=== PATIENT | female | born 1940 | race Caucasian/White ===

== ENCOUNTER 2016-09-30 21:54 | Observation (INO) | payer MEDICARE, BC ==
[2016-09-30] MEDS ORDERED: SODIUM CHLORIDE 0.9% 1,000 ML IV STA (22:10)
--- NOTE | 2016-09-30 22:15 | ED ---
General Adult HPI - General Chief complaint: Chest Pain Stated complaint: Chest Pain Time Seen by Provider: 09/30/16 22:08 Source: patient, EMS, RN notes reviewed, old records reviewed Mode of arrival: EMS Limitations: no limitations - History of Present Illness Initial comments: This is a 68-year-old female to the ER for evaluation of chest pain. Patient has history of heart disease history of chest pain pacemaker placed. Patient does have history of chest pain and angina takes nitro, patient remains the chest at this time although mildly improved with nitro. The symptoms occurred after dinner. Mild shortness of breath or chronic as she had also has asthma. No fevers no cough no congestion. Radiate. - Related Data Home Medications Medication Instructions Recorded Confirmed Metoprolol Tartrate [Lopressor] 50 mg PO BID 09/30/16 09/30/16 Sertraline HCl [Zoloft] 50 mg PO DAILY 09/30/16 09/30/16 Allergies Allergy/AdvReac Type Severity Reaction Status Date / Time Sulfa (Sulfonamide Allergy Unknown Unknown Verified 09/30/16 23:04 Antibiotics) Review of Systems ROS Statement: Those systems with pertinent positive or pertinent negative responses have been documented in the HPI. ROS Other: All systems not noted in ROS Statement are negative. Past Medical History Past Medical History: Asthma, Chest Pain / Angina, COPD, Hypertension History of Any Multi-Drug Resistant Organisms: C-DIFF Date of last positivie culture/infection: per pt severl [facility] ago [facility] Past Surgical History: Joint Replacement Additional Past Surgical History / Comment(s): pacemaker placement 2013, oophrectomy, Past Psychological History: No Psychological Hx Reported Smoking Status: Never smoker Past Alcohol Use History: Rare Past Drug Use History: None Reported General Exam Limitations: no limitations General appearance: alert, in no apparent distress Head exam: Present: atraumatic, normocephalic, normal inspection Eye exam: Present: normal appearance, PERRL, EOMI. Absent: scleral icterus, conjunctival injection, periorbital swelling ENT exam: Present: normal exam, mucous membranes moist Neck exam: Present: normal inspection. Absent: tenderness, meningismus, lymphadenopathy Respiratory exam: Present: normal lung sounds bilaterally. Absent: respiratory distress, wheezes, rales, rhonchi, stridor Cardiovascular Exam: Present: regular rate, normal rhythm, normal heart sounds. Absent: systolic murmur, diastolic murmur, rubs, gallop, clicks GI/Abdominal exam: Present: soft, normal bowel sounds. Absent: distended, tenderness, guarding, rebound, rigid Extremities exam: Present: normal inspection, full ROM, normal capillary refill. Absent: tenderness, pedal edema, joint swelling, calf tenderness Back exam: Present: normal inspection Neurological exam: Present: alert, oriented X3, CN II-XII intact Psychiatric exam: Present: normal affect, normal mood Skin exam: Present: warm, dry, intact, normal color. Absent: rash Course Vital Signs 09/30/16 09/30/16 09/30/16 22:01 22:03 22:29 Temperature 99.2 F 99.2 F Pulse Rate 70 72 86 Respiratory 16 16 16 Rate Blood Pressure 225/117 225/117 191/95 O2 Sat by Pulse 97 97 98 Oximetry 09/30/16 09/30/16 09/30/16 23:01 23:25 23:35 Temperature 97.5 F L Pulse Rate 80 84 84 Respiratory 16 16 Rate Blood Pressure 188/86 197/99 184/90 O2 Sat by Pulse 97 97 Oximetry - Reevaluation(s) Reevaluation #1: 10/01/16 00:16 Patient survey with chest pain, blood pressure much improved Medical Decision Making - Medical Decision Making 76 female here for evaluation of chest pain, continued chest pain, patient to be admitted for cardiac observation, serial troponins - Lab Data Result diagrams: 09/30/16 22:10 09/30/16 22:10 Lab Results 09/30/16 09/30/16 09/30/16 Range/Units 22:10 22:10 22:10 WBC 11.5 H (3.8-10.6) k/uL RBC 4.99 (3.80-5.40) m/uL Hgb 15.2 (11.4-16.0) gm/dL Hct 45.9 (34.0-46.0) % MCV 92.1 (80.0-100.0) fL MCH 30.5 (25.0-35.0) pg MCHC 33.1 (31.0-37.0) g/dL RDW 14.1 (11.5-15.5) % Plt Count 146 L (150-450) k/uL Neutrophils % 78 % Lymphocytes % 11 % Monocytes % 7 % Eosinophils % 3 % Basophils % 1 % Neutrophils # 8.9 H (1.3-7.7) k/uL Lymphocytes # 1.3 (1.0-4.8) k/uL Monocytes # 0.8 (0-1.0) k/uL Eosinophils # 0.3 (0-0.7) k/uL Basophils # 0.1 (0-0.2) k/uL PT (9.0-12.0) sec INR (<1.1) APTT (22.0-30.0) sec Sodium 143 (137-145) mmol/L Potassium 4.1 (3.5-5.1) mmol/L Chloride 107 (98-107) mmol/L Carbon Dioxide 26 (22-30) mmol/L Anion Gap 10 mmol/L BUN 22 H (7-17) mg/dL Creatinine 0.80 (0.52-1.04) mg/dL Est GFR (MDRD) Af Amer >60 (>60 ml/min/1.73 sqM) Est GFR (MDRD) Non-Af >60 (>60 ml/min/1.73 sqM) Glucose 107 H (74-99) mg/dL Calcium 9.6 (8.4-10.2) mg/dL Magnesium 1.9 (1.6-2.3) mg/dL Total Bilirubin 0.8 (0.2-1.3) mg/dL AST 27 (14-36) U/L ALT 29 (9-52) U/L Alkaline Phosphatase 100 (38-126) U/L Total Creatine Kinase 62 (30-135) U/L CK-MB (CK-2) 2.2 (0.0-2.4) ng/mL CK-MB (CK-2) Rel Index 3.5 Troponin I 0.020 (0.000-0.034) ng/mL NT-Pro-B Natriuret Pep pg/mL Total Protein 6.9 (6.3-8.2) g/dL Albumin 4.2 (3.5-5.0) g/dL Lipase 143 (23-300) U/L 09/30/16 09/30/16 Range/Units 22:10 22:10 WBC (3.8-10.6) k/uL RBC (3.80-5.40) m/uL Hgb (11.4-16.0) gm/dL Hct (34.0-46.0) % MCV (80.0-100.0) fL MCH (25.0-35.0) pg MCHC (31.0-37.0) g/dL RDW (11.5-15.5) % Plt Count (150-450) k/uL Neutrophils % % Lymphocytes % % Monocytes % % Eosinophils % % Basophils % % Neutrophils # (1.3-7.7) k/uL Lymphocytes # (1.0-4.8) k/uL Monocytes # (0-1.0) k/uL Eosinophils # (0-0.7) k/uL Basophils # (0-0.2) k/uL PT 10.6 (9.0-12.0) sec INR 1.0 (<1.1) APTT 22.4 (22.0-30.0) sec Sodium (137-145) mmol/L Potassium (3.5-5.1) mmol/L Chloride (98-107) mmol/L Carbon Dioxide (22-30) mmol/L Anion Gap mmol/L BUN (7-17) mg/dL Creatinine (0.52-1.04) mg/dL Est GFR (MDRD) Af Amer (>60 ml/min/1.73 sqM) Est GFR (MDRD) Non-Af (>60 ml/min/1.73 sqM) Glucose (74-99) mg/dL Calcium (8.4-10.2) mg/dL Magnesium (1.6-2.3) mg/dL Total Bilirubin (0.2-1.3) mg/dL AST (14-36) U/L ALT (9-52) U/L Alkaline Phosphatase (38-126) U/L Total Creatine Kinase (30-135) U/L CK-MB (CK-2) (0.0-2.4) ng/mL CK-MB (CK-2) Rel Index Troponin I (0.000-0.034) ng/mL NT-Pro-B Natriuret Pep 3250 pg/mL Total Protein (6.3-8.2) g/dL Albumin (3.5-5.0) g/dL Lipase (23-300) U/L - Radiology Data Radiology results: report reviewed (Chest x-ray negative for acute disease), image reviewed Critical Care Time Critical Care Time: Yes Total Critical Care Time: 31 Disposition Clinical Impression: Chest pain Disposition: ADMITTED IP TO THIS HOSP Condition: Good Instructions: Chest Pain (ED) Referrals: Yanick Oconnell MD [Primary Care Provider] - 1-2 days
[2016-09-30] MEDS ORDERED: LABETALOL 5 MG/ML VIAL MDV IVP STA (22:23)
[2016-09-30 22:24] LABS: Basophils # (A) 0.1 k/uL (0-0.2); Basophils % (A) 1 %; CH 30.1; CHCM 32.8; Eosinophils # (A) 0.3 k/uL (0-0.7); Eosinophils % (A) 3 %; HCT 45.9 % (34.0-46.0); HGB 15.2 gm/dL (11.4-16.0); Luc # (Auto) 0.13; Luc % (Auto) 1; Lymphocytes # (A) 1.3 k/uL (1.0-4.8); Lymphocytes % (A) 11 %; MCH 30.5 pg (25.0-35.0); MCHC 33.1 g/dL (31.0-37.0); MCV 92.1 fL (80.0-100.0); Mean Platelet Volume 7.6; Monocytes # (A) 0.8 k/uL (0-1.0); Monocytes % (A) 7 %; Neutrophils # (A) 8.9 k/uL (1.3-7.7); Neutrophils % (A) 78 %; RBC 4.99 m/uL (3.80-5.40); RDW 14.1 % (11.5-15.5); WBC 11.5 k/uL (3.8-10.6); WBC (Perox) 10.63
[2016-09-30 22:33] LABS: ALT 29 U/L (9-52); AST 27 U/L (14-36); Alkaline Phosphatase 100 U/L (38-126); Anion Gap 10 mmol/L; Blood Urea Nitrogen 22 mg/dL (7-17); Calcium 9.6 mg/dL (8.4-10.2); Carbon Dioxide 26 mmol/L (22-30); Chloride 107 mmol/L (98-107); Glucose 107 mg/dL (74-99); Magnesium 1.9 mg/dL (1.6-2.3); Non-African American GFR(MDRD) >60 (>60 ml/min/1.73 sqM); Potassium 4.1 mmol/L (3.5-5.1); Sodium 143 mmol/L (137-145); Total Bilirubin 0.8 mg/dL (0.2-1.3); Total Protein 6.9 g/dL (6.3-8.2)
[2016-09-30 22:34] LABS: Prothrombin Time 10.6 sec (9.0-12.0)
[2016-09-30 22:38] LABS: Partial Thromboplastin Time 22.4 sec (22.0-30.0)
--- NOTE | 2016-09-30 22:53 | XR ---
EXAM: XR Chest, 2 Views CLINICAL HISTORY: Reason: Chest Pain TECHNIQUE: Frontal and lateral views of the chest. COMPARISON: No relevant prior studies available. FINDINGS: Lungs: Thin linear atelectasis or scarring at the right base. Pleural space: Unremarkable. No pneumothorax. Heart: Heart size within normal limits with probable coronary artery calcification. Mediastinum: Mediastinal contours within normal limits with diffuse aortic calcification. Bones/joints: Mild dextroscoliosis and accentuated thoracic kyphosis. Tubes, lines and devices: 2-lead left-sided pacemaker. IMPRESSION: No acute intrathoracic abnormality is seen.
[2016-09-30 23:08] LABS: Creatine Kinase MB 2.2 ng/mL (0.0-2.4); Troponin I 0.02 ng/mL (0.000-0.034)
[2016-10-01] MEDS ORDERED: ASPIRIN 81 MG CHEW PO STA (00:13)
[2016-10-01] MEDS ORDERED: HEPARIN SODIUM,PORCINE 5,000 UNIT/ML 1 ML VIAL IV ONE (00:13)
[2016-10-01] MEDS ORDERED: HEPARIN SODIUM,PORCINE/D5W PMX 25,000 UNIT in DEXTROSE/WATER 1 500ML.BAG IV SCH (00:15)
[2016-10-01] MEDS ORDERED: ONDANSETRON 4 MG/2 ML VIAL IVP PRN (01:49)
[2016-10-01 01:55] VITALS: BMI 24.3
[2016-10-01] MEDS: NITROGLYCERIN SL TABS 0.4 MG TAB SUBLINGUAL PRN ×2 (01:55→01:58)
[2016-10-01] MEDS ORDERED: MORPHINE SULFATE 4 MG/ML SYRINGE ONE (01:56)
[2016-10-01] MEDS: MORPHINE SULFATE 4 MG/ML SYRINGE IVP PRN ×2 (03:29→06:34)
[2016-10-01] MEDS ORDERED: RX INFO: IV CONTRAST WAS GIVEN 1 EACH MISC MISCELLANE PRN (08:04)
--- NOTE | 2016-10-01 09:20 | CT ---
EXAMINATION TYPE: CT chest angio for PE DATE OF EXAM: 10/01/2016 COMPARISON: Radiograph 09/30/2016 HISTORY: 76-year-old female with chest pain TECHNIQUE: Contiguous axial scanning of the chest performed with IV Contrast, patient injected with 1 00 mL of Omnipaque 350. Coronal and sagittal MIP reconstructions performed. CT DLP: 370 mGycm Automated exposure control for dose reduction was used. FINDINGS: Left anterior chest wall pacemaker generator with right atrial and right ventricular leads. The heart is borderline enlarged with trace anterior pericardial thickening. Coronary vessel calcific ations are present and are remarkable for coronary artery disease. Ascending aorta is borderline aneurysmal at 4.0 cm. There is conventional arterial vessel branching a natomy with mild atherosclerotic calcifications throughout the arch and descending aorta. There is ec citlaly of the upper descending thoracic aorta at 3.1 cm and of the lower descending thoracic aorta at 2.8 cm. Some prominent but nonenlarged mediastinal lymph nodes measure up to 9 mm in the precarinal and right tracheobronchial angle region. Borderline enlarged caliber to the main right and left pulmonary arteries at 2.5 and 2.6 cm, respecti vely, may reflect underlying pulmonary arterial hypertension. There is satisfactory opacification wit hout evidence for pulmonary embolus. Mild diffuse bronchial wall thickening. There is some mosaic attenuation noted in the mid lungs and s ome patchy atelectasis and other opacity at the right base and inferior lingula. No pleural effusion. Visualized upper abdomen shows small dependent 6 mm gallstones within the gallbladder. Bones: S-shaped scoliosis and accentuated mid thoracic kyphosis. No osseous destructive process seen. IMPRESSION: 1. CORRELATE FOR POSSIBLE PULMONARY ARTERIAL HYPERTENSION. NO EVIDENCE FOR PULMONARY EMBOLUS. 2. MILD DIFFUSE BRONCHIAL WALL THICKENING AND SOME MOSAIC ATTENUATION SUGGESTING AIR TRAPPING. CORREL ATE FOR BRONCHITIS AND SMALL AIRWAYS DISEASE OR SOME COMPONENT OF UNDERLYING EMPHYSEMA. 3. SOME PATCHY ATELECTASIS OR INFILTRATE AT THE RIGHT BASE AND INFERIOR LINGULA. CORRELATE FOR ANY IN FECTIOUS SIGNS/SYMPTOMS. 4. BORDERLINE ANEURYSMAL THORACIC AORTA, CHOLELITHIASIS, AND S-SHAPED SCOLIOSIS.
--- NOTE | 2016-10-01 11:26 | ECHOF ---
Referral Reason: MEASUREMENTS -------- HEIGHT: 165.1 cm WEIGHT: 71.2 kg BP: 148/88 IVSd: 1.3 cm (0.6 - 1.1) LVIDd: 2.8 cm (3.9 - 5.3) LVPWd: 1.9 cm (0.6 - 1.1) IVSs: 1.7 cm LVIDs: 1.7 cm LVPWs: 2.1 cm Ao Diam: 3.7 cm (2.0 - 3.7) AV Cusp: 2.2 cm (1.5 - 2.6) LA Diam: 2.8 cm (2.7 - 3.8) MV EXCURSION: 10.759 mm (> 18.000) MV EF SLOPE: 87 mm/s (70 - 150) EPSS: 0.7 cm MV E Darren: 0.75 m/s MV DecT: 152 ms MV A Darren: 0.75 m/s MV E/A Ratio: 1.00 RAP: 5.00 mmHg RVSP: 30.83 mmHg FINDINGS -------- Paced rhythm. This was a technically good study. There is moderate concentric left ventricular hypertrophy. Overall left ventricular systolic function is low-normal with, an EF between 50 - 55 %. The right ventricle is normal in size and function. The left atrium is normal in size. The right atrium is normal in size. Aortic valve is trileaflet and is mildly thickened. The mitral valve leaflets are mildly thickened. Mild mitral annular calcification present. Mild mitral regurgitation is present. Mild tricuspid regurgitation present. The right ventricular systolic pressure, as measured by Doppler, is 30.83mmHg. Pulmonic valve appears structurally normal. The aortic root size is normal. The pericardium is normal. CONCLUSIONS -------- 1. Paced rhythm. 2. Mild mitral annular calcification present. 3. Mild mitral regurgitation is present. 4. Mild tricuspid regurgitation present. 5. The right ventricular systolic pressure, as measured by Doppler, is 30.83mmHg. 6. Pulmonic valve appears structurally normal. 7. The aortic root size is normal. 8. The pericardium is normal. 9. This was a technically good study. 10. There is moderate concentric left ventricular hypertrophy. 11. Overall left ventricular systolic function is low-normal with, an EF between 50 - 55 %. 12. The right ventricle is normal in size and function. 13. The left atrium is normal in size. 14. The right atrium is normal in size. 15. Aortic valve is trileaflet and is mildly thickened. 16. The mitral valve leaflets are mildly thickened. DEPUTY CLERK OF COURT: Abigail Kellogg RDCS
[2016-10-01] MEDS ORDERED: AMINOPHYLLINE 500 MG/20 ML VIAL IV PRN (11:36)
[2016-10-01] MEDS ORDERED: REGADENOSON 0.4 MG/5 ML SYRINGE IV ONE (11:36)
[2016-10-01] MEDS: SODIUM CHLORIDE 0.9% 1,000 ML IV SCH (13:25)
[2016-10-01] MEDS: METOPROLOL TARTRATE 50 MG TAB PO SCH ×2 (14:33→22:50)
[2016-10-01] MEDS: ATORVASTATIN 80 MG TAB PO SCH (14:34)
[2016-10-01] MEDS: LOSARTAN-HCTZ 50-12.5 MG 1 EACH TAB PO SCH (14:34)
[2016-10-01] MEDS: SERTRALINE 50 MG TAB PO SCH (14:34)
[2016-10-02 05:48] LABS: Mean Platelet Volume 7.8
[2016-10-02 06:03] LABS: Cholesterol 141 mg/dL (<200); HDL Cholesterol 66 mg/dL (40-60); Triglycerides 44 mg/dL (<150)
[2016-10-02] MEDS: SODIUM CHLORIDE 0.9% 1,000 ML IV SCH (08:15)
[2016-10-02] MEDS: SERTRALINE 50 MG TAB PO SCH (08:32)
[2016-10-02] MEDS: ATORVASTATIN 80 MG TAB PO SCH (08:32)
[2016-10-02] MEDS: METOPROLOL TARTRATE 50 MG TAB PO SCH (08:32)
[2016-10-02] MEDS: LOSARTAN-HCTZ 50-12.5 MG 1 EACH TAB PO SCH (08:33)
[2016-10-02] MEDS ORDERED: ASPIRIN 325 MG TAB PO SCH (09:00)
[2016-10-02 09:03] VITALS: BP 158/90; PULSE 53; RESP 16; TEMP 97.9
--- NOTE | 2016-10-02 09:49 | PN ---
CHIEF COMPLAINT: Chest pain. HISTORY OF PRESENT ILLNESS: This 76 year old presents to the hospital emergency room via EMS with complaints of chest pain. The patient says the pain had been present for about ten hours duration quite intense across the chest and precordial area. The patient's neighbor said she looked pale and thus decided to come to the emergency room. She denies having any other symptoms of nausea, vomiting, shortness of breath, any worse than usual. Denied any cough, congestion or any hemoptysis. The patient denied any palpitations. She does have a history of pacemaker for sick sinus syndrome. She has had no known history of coronary artery disease, previous echo ( ) back in 2014 by cardiology was negative. The patient was given nitroglycerine by the EMS as well as the emergency room without any significant change. The patient's EKG is not helpful because the patient is pacemaker rhythm and bundle branch block type pattern. She denies any symptoms worsening with sitting or laying down. the patient described the pain as crushing. Denied any abdominal pains. After evaluation in the emergency room with negative troponins, the patient was admitted for further evaluation due to pacemaker status. The patient required some morphine withheld. This morning she is denying any pain. PAST MEDICAL HISTORY: Significant for hypertension for over 17 years, history of sick sinus syndrome, with a previous pacemaker, history of COPD, history of rheumatoid arthritis for more than 40 years. She does have a history of pneumonia in the past. No history of any malignancy, liver disease, kidney disease, ulcers, TB, hepatitis, no history of any rheumatic fever, myocardial infarction or CVA. Did have an infected calcaneum and osteomyelitis, resolved with treatment. PAST SURGICAL HISTORY: Significant for tonsillectomy, bilateral total knee arthroplasty, right ovarian salpingo-oophorectomy, D&C, both ankle fusion, cataract surgery. Has had a previous breast biopsy. PERSONAL HISTORY: Nonsmoker, alcohol rare. VACCINATIONS: Pneumovax in 2004 and in 2013. ALLERGIES: SULFA, INDOCIN, GOLD. MEDICATIONS: 1. Zoloft 50 mg daily. 2. Metoprolol 50 mg b.i.d. 3. Used to be on ( ) which she has not been taking. 4. Methotrexate used to help. Because of the cost of medication, the patient stopped. SOCIAL HISTORY: , singled, retired. Diet regular. Exercise none. Fairly active. FAMILY MEDICAL HISTORY: Father age of 80 because of CA of the prostate. Mother age 97, history of macular degeneration and leukemia. One brother age 73 with history of coronary artery disease. Sister 67 and 69 in adequate health. The patient has two daughters. One daughter has had leg amputation for accidental injury. The other daughter is in good health. REVIEW OF SYSTEMS: NEURO: Denies any headaches, dizziness, no double vision or blurred vision. No symptoms of TIA, syncope or seizures. PSYCH: No anxiety or depression. CARDIAC: Denies chest pain, angina or palpitations at present. Did have chest pain at the time of admission. Denies shortness of breath. Does have some dyspnea on exertion. Mild chronic cough. No hemoptysis. GI: No nausea or vomiting, abdominal pain, heartburn, diarrhea, constipation, hematochezia, melena. : No symptoms of dysuria or hematuria. EXTREMITIES: Denies pain except for chronic arthritic pain. CONSTITUTIONAL: Had a low grade temperature of 99.2 in the emergency room, otherwise, no fever or chills. Weight is stable. SKIN: No rashes. PHYSICAL EXAMINATION: Pleasant female in no distress. VITAL SIGNS: This morning reveals temperature 97.5, pulse 77, respirations 18. Blood pressure 148/88. She did have a blood pressure of 225/117 at the time of ER evaluation. HEENT: Normocephalic. NECK: Decreased range of motion. No JVD. No carotid bruit. No thyromegaly. Oral cavity is dry. CHEST: Examination, mild generalized decreased air flow, normal percussion. CARDIAC: Distant heart sounds, S1, S2 with no gallops. Regular rhythm. No rubs appreciated. ABDOMEN: Soft, no palpable masses. Bowel sounds normal. No organomegaly. No abdominal bruits. No tenderness at the gallbladder site. EXTREMITIES: Revealed trace edema at the ankles. NEUROLOGICAL: Awake, alert and oriented with well coordinated movements. She has significant arthritic deformities of the hands and feet. LABORATORY ASSESSMENT: White count 11.5, platelet count 146, neutrophils 8.9. Electrolytes normal. BUN 22, glucose 107, CPK normal. Troponin 0.020. BNP 3250. Lipase and amylase are normal. Chest x-ray no acute intrathoracic abnormality was seen. ASSESSMENT: 1. Chest pain, etiology undetermined, likelihood of acute coronary syndrome in the setting of prolonged pain with negative troponins is unlikely. 2. Rule out pulmonary embolism, rule out history of esophageal symptoms. Rule out gallbladder disease. 3. History of rheumatoid arthritis. 4. hypertension with acceleration of blood pressure elevation. PLAN: Continue present medical regimen. The patient's condition discussed with the patient. We will obtain an echocardiogram and CT scan of the chest to rule out pulmonary embolism. Cardiology has evaluated the patient. The patient's general condition discussed with the patient. Prognosis guarded. If the cardiac testing and CT scans are unremarkable, the patient could be discharged home. JANES
--- NOTE | 2016-10-02 10:23 | CONS ---
Mrs. Mcallister is a 68 year old female who is seen for evaluation of chest pain. The patient gives history that she started having some chest discomfort yesterday. The pain was diffuse across the chest and it was persistent. She took some nitro with partial relief but the patient continued to have symptoms after dinner. It was not associated with any shortness of breath, nausea or vomiting. The patient has a history of pacemaker which was done about three years ago. Her physical activities are limited. She is walking with a cane. She has a history of hypertension. There is no definite prior history of myocardial infarction. The patient's home medications included Lopressor and Zoloft. Past medical history includes: History of joint replacement, history of pacemaker placement in 2013, oophorectomy, history of chest pain and hypertension. The patient did not smoke. Physical examination at present revealed 76 year old female who is thinly built. This patient had some low grade fever in the emergency room of 99.2 and her blood pressure was 225/117 in the emergency room and subsequently it had come down to 184/90. The patient's blood pressure now is 148/88 mmHg. The patient is afebrile. HEENT examination is negative. Neck is supple. There is no increase in jugular venous pressure. Both carotid pulses are felt. There is no bruit. Chest is symmetrical. Heart, the PMI is not felt. First and second heart sounds are normal. There is a possible pericardial rub systolic and diastolic extra sounds are noted suggestive of pericardial rub. Abdomen is soft. Liver and spleen is not enlarged. Extremities, peripheral pulsations are 2+. EKG shows paced rhythm. The patient's laboratory test shows white count 11, 500. Electrolytes are normal. Three sets of troponins are 0.02, 0.02 and 0.015. The patient's pro-BNP level is 3200. Chest x-ray does not show any evidence of heart failure. The patient had a CT scan of the chest done which did not show any evidence of pulmonary embolism. There is diffuse coronary artery calcification noted. Echocardiogram does not show any evidence of wall motion abnormality or pericardial effusion. FINAL IMPRESSION: Chest pain, unstable angina cannot be entirely included. The patient's troponins are not definitely paced rhythm. the patient has had mildly elevated troponin. Underlying ( ). MTDD
--- NOTE | 2016-10-02 10:27 | CONS ---
ADDENDUM: Continuation: ASSESSMENT AND PLAN: The patient is admitted with prolonged episode of chest pain. The patient's two troponins are 0.020, 0.020 which are not diagnostic of acute coronary syndrome. The patient gives history that her pain was increasing with breathing and there is evidence of possible pericardial rub, whether the patient had associated pericarditis is a possibility. The patient does have coronary artery calcification. In view of that, we will schedule the patient for Lexiscan Cardiolite study and if there is any evidence of significant ischemia, then the patient will need cardiac catheterization. We will also obtain the sed rate and continue her medications for the blood pressure. We recommend to treat the patient with Lipitor because of the underlying known coronary artery disease. JANES
--- NOTE | 2016-10-02 13:11 | EST ---
DATE OF SERVICE: 10/01/2016 LEXISCAN CARDIOLITE REPORT INDICATION: Chest pain. BASELINE HEART RATE: 73 BASELINE BLOOD PRESSURE: 144/81 MAXIMUM HEART RATE: 86 MAXIMUM BLOOD PRESSURE: 112/66 85% MPHR: 121 100% MPHR: 142 METs; MAX STAGE REACHED: TOTAL EXERCISE TIME: The patient was given Lexiscan injection over a period of 15 seconds. A peak heart rate of 86 was achieved. Maximum blood pressure of 112/66 mmHg was noted. Resting EKG shows atrial sensing followed by ventricular pacing is noted. No ST segment change from the baseline were noted. The results of the nuclear study will follow. JENND
--- NOTE | 2016-10-02 22:07 | NM ---
EXAMINATION TYPE: NM stress lexiscan cardiolite DATE OF EXAM: 10/01/2016 COMPARISON: NONE HISTORY: 76-year-old male with chest pain TECHNIQUE: After the intravenous administration of 10.4 mCi Tc 99m Sestamibi - Cardiolite resting SP ECT images acquired 45 minutes post injection. The patient received 0.4mg Lexiscan, 27.5 mCi Tc 99m Sestamibi - Stress images obtained 175 minutes p ost injection FINDINGS: Review of stress and rest SPECT images demonstrates no distinct perfusion abnormality. Gated analysi s shows normal wall motion with an estimated left ventricular ejection fraction of 45 %. However, rev iew of the gated images suggests that this LVEF is incorrectly underestimated. TID is calculated at 0 .96, within normal limits. IMPRESSION: No scintigraphic evidence for reversible ischemia. The calculated LVEF is felt to be incorrectly unde restimated when correlated with the gated images. Initial impression was discussed with Dr. Kim's nurse at 10:35am.
--- NOTE | 2016-10-03 14:33 | PN ---
Mrs. Mcallister is a 76 year old female who was admitted with symptoms of chest discomfort. She is doing quite well this morning, according to her, that is the best night she slept. She has no chest pain. Her breathing has been stable. She denies any dizziness or palpitations. She has underwent a myocardial perfusion imaging yesterday and the results are pending. Her echocardiogram has shown a preserved systolic function with mild mitral and tricuspid regurgitation. She continues to be at this time on aspirin once a day , Lipitor 80 mg daily, Losartan ACT 50/12.5 mg daily, Metoprolol tartrate 50 mg twice a day and Sertraline. Physical examination: Blood pressure running the 140s/80 with a heart rate in the 60s. Lungs clear. Heart regular rate and rhythm. S1, S2, no S3 with systolic ejection murmur. No diastolic murmur. Abdomen soft and nontender. Extremities no edema. Lab data revealed troponin 0.02, 0.02, 0.015. BUN and creatinine of 22 and 0.8. Cholesterol 141. LDL 66. IMPRESSION: 1. Chest discomfort of unclear etiology, no evidence of acute coronary syndrome. 2. Status permanent pacemaker implantation. 3. History of hypertension. 4. History of hyperlipidemia. RECOMMENDATIONS: From the cardiac standpoint, we will wait the results of the ( ) scan. If there is no abnormality, I would expect she should be able to be discharged home to day. JANES
--- NOTE | 2016-10-05 11:08 | DS ---
PRINCIPAL DIAGNOSES: 1. Chest pain undetermined etiology. 2. Cholelithiasis. 3. Rheumatoid arthritis. 4. Accelerated hypertension. 5. Calcified coronary arteries. HISTORY OF PRESENT ILLNESS: This 76 year old female admitted to the hospital after presenting to the emergency room with complaints of crushing chest pain across the chest. The patient had no associated any other significant symptoms. She had a low grade temperature 99.2. The patient was admitted to the hospital. Troponin level was 0.02. No other significant abnormalities. The patient has had a pacemaker and has a bundle branch block pattern on the EKG. In view of this, the patient was admitted to the hospital, anticoagulated initially and subsequently had an echocardiogram and CT scan of the chest to rule out pulmonary embolism. This was negative. CT did show some calcifications in the coronary arteries. In view of this, cardiology did recommend the patient to have a stress test. The patient's stress test was reported as negative. The patient's general condition improved. No further symptoms. The patient's CT scan did show cholelithiasis. No evidence of any obstruction and liver enzymes, amylase and lipase were within normal range. The patient, in view of this, was discharged home. The patient's blood pressure was markedly elevated when she presented to the hospital in the 200s. Subsequently, came within acceptable range. The patient had Losartan started. At the time of discharge, the patient's condition stable. She will follow up as an outpatient. If repeat episodes, the patient would subsequently be recommended to undergo cholecystectomy. The patient has no symptoms of any heartburn or any GI symptoms at present. Her medications at home include: 1. Lipitor 10 mg daily. 2. Losartan hydrochlorothiazide 50/12.5 one daily. 3. Metoprolol tartrate 50 mg b.i.d. 4. Zoloft 50 mg daily. The patient's condition is stable at the time of discharge. [facility]
== END 2016-10-02 12:30 | disposition home or self-care (01) ==
LOC: EC 21:54 → 3OBS 10-01 00:14 → 4MS4W 10-01 22:47 → 3OBS 10-02 07:08
PROVIDERS: ADMIT Internal Medicine; ATTEND Internal Medicine
DX: I25.10 Atherosclerotic heart disease of native coronary artery without angina pectoris (principal); J45.909 Unspecified asthma, uncomplicated; I10 Essential (primary) hypertension; M41.9 Scoliosis, unspecified; K80.20 Calculus of gallbladder without cholecystitis without obstruction; J44.9 Chronic obstructive pulmonary disease, unspecified; I08.1 Rheumatic disorders of both mitral and tricuspid valves; E78.5 Hyperlipidemia, unspecified; Z95.0 Presence of cardiac pacemaker; Z86.19 Personal history of other infectious and parasitic diseases; Z88.2 Allergy status to sulfonamides; M06.9 Rheumatoid arthritis, unspecified; Z79.899 Other long term (current) drug therapy; Z82.49 Family history of ischemic heart disease and other diseases of the circulatory system
CPT/HCPCS: 96375 ×3; 96361 ×5; 99291 ×2; 96376 ×3; 96365; 96366; 36415; 94760; 93005; 93017; 93306; 83880; 80061; 80053; 85652; 82550; 82553; 83690; 83735; 84484 ×2; 85025; 85049 ×2; 85610; 85730 ×2; 71020; 71275; 78452; G0378 ×2; A9500; J2270; J1644 ×2; Q9967; J2405; J2785

== ENCOUNTER 2017-09-29 11:29 | Inpatient (IN) | payer MEDICARE, BC ==
[2017-09-29] MEDS ORDERED: SODIUM CHLORIDE 0.9% 1,000 ML IV STA (11:55)
[2017-09-29 12:20] LABS: WBC 7.6 k/uL (3.8-10.6)
[2017-09-29 12:21] LABS: Anisocytosis Moderate; Basophils # (A) 0.1 k/uL (0-0.2); Basophils % (A) 1 %; Eosinophils # (A) 0.3 k/uL (0-0.7); Eosinophils % (A) 4 %; HCT 45.7 % (34.0-46.0); HGB 14.4 gm/dL (11.4-16.0); Hypochromasia Slight; Lymphocytes % (A) 13 %; MCHC 31.5 g/dL (31.0-37.0); MCV 104.8 fL (80.0-100.0); Macrocytosis Marked; Mean Platelet Volume 7.5; Monocytes # (A) 0.7 k/uL (0-1.0); Monocytes % (A) 9 %; Neutrophils # (A) 5.3 k/uL (1.3-7.7); Neutrophils % (A) 70 %; Platelet Count 130 k/uL (150-450); RBC 4.37 m/uL (3.80-5.40); RDW 20.1 % (11.5-15.5)
[2017-09-29 12:30] LABS: INR 1.2 (<1.2); Partial Thromboplastin Time 24.3 sec (22.0-30.0); Prothrombin Time 11.3 sec (9.0-12.0)
[2017-09-29 12:31] LABS: Calcium 8.9 mg/dL (8.4-10.2); Potassium 4.2 mmol/L (3.5-5.1); Total Bilirubin 0.9 mg/dL (0.2-1.3); Total Protein 5.7 g/dL (6.3-8.2)
[2017-09-29 13:06] LABS: Creatine Kinase MB 4.3 ng/mL (0.0-2.4)
[2017-09-29 13:07] LABS: Troponin I 0.25 ng/mL (0.000-0.034)
[2017-09-29 13:26] LABS: Amorphous Sediment,Urine Moderate /hpf; Appearance,Urine Turbid (Clear); Bacteria,Urine Moderate /hpf; Bilirubin,Urine Negative (Negative); Blood,Urine Moderate (Negative); Color,Urine Yellow; Glucose,Urine (UA) Negative (Negative); Ketones,Urine Negative (Negative); Leukocyte Esterase,Urine Large (Negative); Mucus,Urine Few /hpf; Nitrite,Urine Negative (Negative); PH, Urine 5.5 (5.0-8.0); Protein,Urine 1+ (Negative); RBC,Urine 3 /hpf (0-5); Specific Gravity,Urine 1.018 (1.001-1.035); Squamous Epithelial Cell,Urine 21 /hpf (0-4); WBC,Urine 152 /hpf (0-5)
--- NOTE | 2017-09-29 13:27 | XR ---
EXAMINATION TYPE: XR chest 2V DATE OF EXAM: 09/29/2017 COMPARISON: Prior chest x-ray 09/30/2016, chest CT 10/01/2016 HISTORY: Weakness, altered mental status, COPD TECHNIQUE: Frontal and lateral views of the chest are obtained. FINDINGS: There is no focal air space opacity, pleural effusion, or pneumothorax seen. The cardiac silhouette size is stable and enlarged, patient is rotated. Prominent lung volume likely indicative o f underlying COPD. The aorta is dense. Pacemaker is stable. The osseous structures are intact. IMPRESSION: No acute cardiopulmonary process.
[2017-09-29] MEDS ORDERED: cefTRIAXone IN SWFI 1,000 MG/10 ML SYRINGE IVP STA (14:18)
--- NOTE | 2017-09-29 14:29 | ED ---
General Adult HPI - General Chief complaint: Weakness Stated complaint: Poss uti Time Seen by Provider: 09/29/17 11:48 Source: patient, EMS Mode of arrival: EMS Limitations: no limitations - History of Present Illness Initial comments: 77 years O female with a history of heart disease and she has a pacemaker complaining about some palpitation or chest pain no shortness of breath as such only with the exertion she denies any pleuritic chest pain no fever no chills she has a history of bladder infection and she feels he may be back is feeling generally unwell she feels tired she feels there is no energy. [place] pain no frequency no frequency urgency dysuria as such no symptoms of TIA or CVA - Related Data Home Medications Medication Instructions Recorded Confirmed Metoprolol Tartrate [Lopressor] 50 mg PO BID 09/30/16 09/29/17 Aspirin EC [Ecotrin Low Dose] 81 mg PO DAILY 09/29/17 09/29/17 Methotrexate Sodium [Methotrexate] 2.5 mg PO MOTUWETHFR 09/29/17 09/29/17 Oxybutynin Chloride 5 mg PO BID 09/29/17 09/29/17 Previous Rx's Medication Instructions Recorded Atorvastatin Calcium [Lipitor] 10 mg PO DAILY #30 tab 10/02/16 Losartan-Hctz 50-12.5 mg [Hyzaar 1 each PO DAILY #30 tab 10/02/16 50-12.5] Allergies Allergy/AdvReac Type Severity Reaction Status Date / Time Sulfa (Sulfonamide Allergy Unknown Unknown Verified 09/29/17 14:15 Antibiotics) Review of Systems ROS Statement: Those systems with pertinent positive or pertinent negative responses have been documented in the HPI. ROS Other: All systems not noted in ROS Statement are negative. Past Medical History Past Medical History: Asthma, Chest Pain / Angina, COPD, Hypertension History of Any Multi-Drug Resistant Organisms: C-DIFF Date of last positivie culture/infection: per pt severl years ago while at [facility] facility MDRO Source:: . Past Surgical History: Joint Replacement, Pacemaker Additional Past Surgical History / Comment(s): pacemaker placement 2013, oophrectomy, total bilat knee replacements Past Psychological History: No Psychological Hx Reported Smoking Status: Never smoker Past Alcohol Use History: Rare Past Drug Use History: None Reported General Exam - General Exam Comments Initial Comments: General: The patient is awake and alert, in no distress, and does not appear acutely ill. GCS is 15 Skin: Skin is warm and dry and no rashes or lesions are noted. Eye: Pupils are equal, round and reactive to light, extra-ocular movements are intact; there is normal conjunctiva bilaterally. Ears, nose, mouth and throat: There are moist mucous membranes and no oral lesions. Neck: The neck is supple, there is no tenderness signs of meningitis Cardiovascular: There is a regular rate and rhythm. No murmur, rub or gallop is appreciated. Respiratory: To auscultation bilateral, noticed times of secretions bilateral Gastrointestinal: Soft, non-distended, non-tender abdomen without masses or organomegaly noted. There is no rebound or guarding present. Bowel sounds are unremarkable. Back: There is no tenderness to palpation in the midline. There is no obvious deformity. Musculoskeletal: Normal ROM, no tenderness, There is edema affecting both lower extremities Neurological: CN II-XII intact, Cranial nerves III through XII are intact. There are no obvious motor or sensory deficits. Coordination appears grossly intact. Speech is normal. Psychiatric: Cooperative, appropriate mood & affect, normal judgment. Limitations: no limitations Course Vital Signs 09/29/17 11:37 Temperature 97.5 F L Pulse Rate 93 Respiratory 20 Rate Blood Pressure 155/96 O2 Sat by Pulse 97 Oximetry She'll be admitted to Dr. Oconnell's service EKG Findings - EKG Comments: EKG Findings:: EKG is atrial sensed ventricular paced rhythm ventricular rate is 90 IA interval is 192 QRS duration is 192 as well QT/QTc is 464/567 this is a paced EKG Medical Decision Making - Lab Data Result diagrams: 09/29/17 12:00 09/29/17 12:00 Lab Results 09/29/17 09/29/17 09/29/17 Range/Units 12:00 12:00 12:00 WBC 7.6 (3.8-10.6) k/uL RBC 4.37 (3.80-5.40) m/uL Hgb 14.4 (11.4-16.0) gm/dL Hct 45.7 (34.0-46.0) % MCV 104.8 H (80.0-100.0) fL MCH 33.0 (25.0-35.0) pg MCHC 31.5 (31.0-37.0) g/dL RDW 20.1 H (11.5-15.5) % Plt Count 130 L (150-450) k/uL Neutrophils % 70 % Lymphocytes % 13 % Monocytes % 9 % Eosinophils % 4 % Basophils % 1 % Neutrophils # 5.3 (1.3-7.7) k/uL Lymphocytes # 1.0 (1.0-4.8) k/uL Monocytes # 0.7 (0-1.0) k/uL Eosinophils # 0.3 (0-0.7) k/uL Basophils # 0.1 (0-0.2) k/uL Manual Slide Review Performed Hypochromasia Slight Anisocytosis Moderate Macrocytosis Marked PT (9.0-12.0) sec INR (<1.2) APTT (22.0-30.0) sec Sodium 139 (137-145) mmol/L Potassium 4.2 (3.5-5.1) mmol/L Chloride 104 (98-107) mmol/L Carbon Dioxide 28 (22-30) mmol/L Anion Gap 7 mmol/L BUN 21 H (7-17) mg/dL Creatinine 0.80 (0.52-1.04) mg/dL Est GFR (CKD-EPI)AfAm 81 (>60 ml/min/1.73 sqM) Est GFR (CKD-EPI)NonAf 71 (>60 ml/min/1.73 sqM) Glucose 104 H (74-99) mg/dL Plasma Lactic Acid Hector (0.7-2.0) mmol/L Calcium 8.9 (8.4-10.2) mg/dL Total Bilirubin 0.9 (0.2-1.3) mg/dL AST 48 H (14-36) U/L ALT 59 H (9-52) U/L Alkaline Phosphatase 77 (38-126) U/L Total Creatine Kinase 45 (30-135) U/L CK-MB (CK-2) 4.3 H* (0.0-2.4) ng/mL CK-MB (CK-2) Rel Index 9.6 Troponin I 0.250 H* (0.000-0.034) ng/mL NT-Pro-B Natriuret Pep pg/mL Total Protein 5.7 L (6.3-8.2) g/dL Albumin 3.0 L (3.5-5.0) g/dL Urine Color Urine Appearance (Clear) Urine pH (5.0-8.0) Ur Specific [place] (1.001-1.035) Urine Protein (Negative) Urine Glucose (UA) (Negative) Urine Ketones (Negative) Urine Blood (Negative) Urine Nitrite (Negative) Urine Bilirubin (Negative) Urine Urobilinogen (<2.0) mg/dL Ur Leukocyte Esterase (Negative) Urine RBC (0-5) /hpf Urine WBC (0-5) /hpf Urine WBC Clumps (None) /hpf Ur Squamous Epith Cells (0-4) /hpf Amorphous Sediment (None) /hpf Urine Bacteria (None) /hpf Urine Mucus (None) /hpf 09/29/17 09/29/17 09/29/17 Range/Units 12:00 12:00 12:00 WBC (3.8-10.6) k/uL RBC (3.80-5.40) m/uL Hgb (11.4-16.0) gm/dL Hct (34.0-46.0) % MCV (80.0-100.0) fL MCH (25.0-35.0) pg MCHC (31.0-37.0) g/dL RDW (11.5-15.5) % Plt Count (150-450) k/uL Neutrophils % % Lymphocytes % % Monocytes % % Eosinophils % % Basophils % % Neutrophils # (1.3-7.7) k/uL Lymphocytes # (1.0-4.8) k/uL Monocytes # (0-1.0) k/uL Eosinophils # (0-0.7) k/uL Basophils # (0-0.2) k/uL Manual Slide Review Hypochromasia Anisocytosis Macrocytosis PT 11.3 (9.0-12.0) sec INR 1.2 H (<1.2) APTT 24.3 (22.0-30.0) sec Sodium (137-145) mmol/L Potassium (3.5-5.1) mmol/L Chloride (98-107) mmol/L Carbon Dioxide (22-30) mmol/L Anion Gap mmol/L BUN (7-17) mg/dL Creatinine (0.52-1.04) mg/dL Est GFR (CKD-EPI)AfAm (>60 ml/min/1.73 sqM) Est GFR (CKD-EPI)NonAf (>60 ml/min/1.73 sqM) Glucose (74-99) mg/dL Plasma Lactic Acid Hector 1.8 (0.7-2.0) mmol/L Calcium (8.4-10.2) mg/dL Total Bilirubin (0.2-1.3) mg/dL AST (14-36) U/L ALT (9-52) U/L Alkaline Phosphatase (38-126) U/L Total Creatine Kinase (30-135) U/L CK-MB (CK-2) (0.0-2.4) ng/mL CK-MB (CK-2) Rel Index Troponin I (0.000-0.034) ng/mL NT-Pro-B Natriuret Pep 1410 pg/mL Total Protein (6.3-8.2) g/dL Albumin (3.5-5.0) g/dL Urine Color Urine Appearance (Clear) Urine pH (5.0-8.0) Ur Specific [place] (1.001-1.035) Urine Protein (Negative) Urine Glucose (UA) (Negative) Urine Ketones (Negative) Urine Blood (Negative) Urine Nitrite (Negative) Urine Bilirubin (Negative) Urine Urobilinogen (<2.0) mg/dL Ur Leukocyte Esterase (Negative) Urine RBC (0-5) /hpf Urine WBC (0-5) /hpf Urine WBC Clumps (None) /hpf Ur Squamous Epith Cells (0-4) /hpf Amorphous Sediment (None) /hpf Urine Bacteria (None) /hpf Urine Mucus (None) /hpf 09/29/17 Range/Units 13:01 WBC (3.8-10.6) k/uL RBC (3.80-5.40) m/uL Hgb (11.4-16.0) gm/dL Hct (34.0-46.0) % MCV (80.0-100.0) fL MCH (25.0-35.0) pg MCHC (31.0-37.0) g/dL RDW (11.5-15.5) % Plt Count (150-450) k/uL Neutrophils % % Lymphocytes % % Monocytes % % Eosinophils % % Basophils % % Neutrophils # (1.3-7.7) k/uL Lymphocytes # (1.0-4.8) k/uL Monocytes # (0-1.0) k/uL Eosinophils # (0-0.7) k/uL Basophils # (0-0.2) k/uL Manual Slide Review Hypochromasia Anisocytosis Macrocytosis PT (9.0-12.0) sec INR (<1.2) APTT (22.0-30.0) sec Sodium (137-145) mmol/L Potassium (3.5-5.1) mmol/L Chloride (98-107) mmol/L Carbon Dioxide (22-30) mmol/L Anion Gap mmol/L BUN (7-17) mg/dL Creatinine (0.52-1.04) mg/dL Est GFR (CKD-EPI)AfAm (>60 ml/min/1.73 sqM) Est GFR (CKD-EPI)NonAf (>60 ml/min/1.73 sqM) Glucose (74-99) mg/dL Plasma Lactic Acid Hector (0.7-2.0) mmol/L Calcium (8.4-10.2) mg/dL Total Bilirubin (0.2-1.3) mg/dL AST (14-36) U/L ALT (9-52) U/L Alkaline Phosphatase (38-126) U/L Total Creatine Kinase (30-135) U/L CK-MB (CK-2) (0.0-2.4) ng/mL CK-MB (CK-2) Rel Index Troponin I (0.000-0.034) ng/mL NT-Pro-B Natriuret Pep pg/mL Total Protein (6.3-8.2) g/dL Albumin (3.5-5.0) g/dL Urine Color Yellow Urine Appearance Turbid H (Clear) Urine pH 5.5 (5.0-8.0) Ur Specific [place] 1.018 (1.001-1.035) Urine Protein 1+ H (Negative) Urine Glucose (UA) Negative (Negative) Urine Ketones Negative (Negative) Urine Blood Moderate H (Negative) Urine Nitrite Negative (Negative) Urine Bilirubin Negative (Negative) Urine Urobilinogen 2.0 (<2.0) mg/dL Ur Leukocyte Esterase Large H (Negative) Urine RBC 3 (0-5) /hpf Urine WBC 152 H (0-5) /hpf Urine WBC Clumps Occasional H (None) /hpf Ur Squamous Epith Cells 21 H (0-4) /hpf Amorphous Sediment Moderate H (None) /hpf Urine Bacteria Moderate H (None) /hpf Urine Mucus Few H (None) /hpf Critical Care Time Total Critical Care Time: 30 Critical Care Time: Noticed CBC is normal she is afebrile troponin is elevated she has a history of heart disease she has a pacemaker in place stroke 0.250 BNP is 1490 this x-ray didn't show any pneumonia she definitely could do some Lasix because both lower extremities has more swelling and urinalysis shows significant cystitis I think it's early sepsis as well making her feel tired History of recurrent sepsis regarding cultured blood and urine and she be given now Rocephin IV and IV fluids as well as chest as well as elevated troponin is concerned she be admitted as acute coronary syndrome she started to be heparinized since she has no chest pain unfortunately EKG is paced ALSO cardiology she will S and beta blockers and she gets some aspirin nitro as needed and will be admitted to selective care Disposition Clinical Impression: Sepsis, UTI (urinary tract infection), Myocardial infarction Disposition: ADMITTED IP TO THIS HOSP Condition: Good Referrals: Yanick Oconnell MD [Primary Care Provider] - 1-2 days
[2017-09-29] MEDS ORDERED: NITROGLYCERIN SL TABS 0.4 MG TAB SUBLINGUAL PRN (14:41)
[2017-09-29] MEDS ORDERED: MORPHINE SULFATE 2 MG/ML SYRINGE IVP PRN (14:41)
[2017-09-29] MEDS: METHOTREXATE SODIUM 2.5 MG TAB PO SCH (19:11)
[2017-09-29 19:19] LABS: Creatine Kinase MB 5.3 ng/mL (0.0-2.4); Troponin I 0.251 ng/mL (0.000-0.034)
[2017-09-29] MEDS ORDERED: FUROSEMIDE 10 MG/ML 2 ML VIAL IV SCH (21:00)
[2017-09-29] MEDS: METOPROLOL TARTRATE 50 MG TAB PO SCH (22:31)
[2017-09-29] MEDS: OXYBUTYNIN CHLORIDE 5 MG TAB PO SCH (22:32)
[2017-09-30 00:28] LABS: Creatine Kinase MB 4.2 ng/mL (0.0-2.4); Troponin I 0.262 ng/mL (0.000-0.034)
[2017-09-30 02:00] LABS: Cholesterol 136 mg/dL (<200); HDL Cholesterol 42 mg/dL (40-60); LDL Cholesterol,Calculated 75 mg/dL (0-99); Triglycerides 94 mg/dL (<150)
[2017-09-30] MEDS: ATORVASTATIN 10 MG TAB PO SCH (07:54)
[2017-09-30] MEDS: ASPIRIN 325 MG TAB PO SCH (07:54)
[2017-09-30] MEDS: cefTRIAXone IN SWFI 1,000 MG/10 ML SYRINGE IVP SCH (07:54)
[2017-09-30] MEDS: FUROSEMIDE 10 MG/ML 2 ML VIAL IV SCH ×2 (07:55→21:48)
[2017-09-30] MEDS: LOSARTAN-HCTZ 50-12.5 MG 1 EACH TAB PO SCH (07:55)
[2017-09-30] MEDS: METOPROLOL TARTRATE 50 MG TAB PO SCH ×2 (07:55→21:48)
[2017-09-30] MEDS: OXYBUTYNIN CHLORIDE 5 MG TAB PO SCH ×2 (07:56→21:48)
[2017-09-30 08:30] LABS: Calcium 8.5 mg/dL (8.4-10.2)
[2017-09-30 08:35] LABS: Potassium 4.9 mmol/L (3.5-5.1)
--- NOTE | 2017-09-30 12:03 | ECHOF ---
Referral Reason:sob MEASUREMENTS -------- HEIGHT: 165.1 cm WEIGHT: 74.4 kg BP: 171/104 IVSd: 1.4 cm (0.6 - 1.1) LVIDd: 3.5 cm (3.9 - 5.3) LVPWd: 1.3 cm (0.6 - 1.1) IVSs: 1.6 cm LVIDs: 1.9 cm LVPWs: 1.6 cm Ao Diam: 3.8 cm (2.0 - 3.7) AV Cusp: 1.5 cm (1.5 - 2.6) LA Diam: 2.5 cm (2.7 - 3.8) MV EXCURSION: 14.230 mm (> 18.000) MV EF SLOPE: 52 mm/s (70 - 150) EPSS: 0.8 cm MV E Darren: 0.50 m/s MV DecT: 158 ms MV A Darren: 0.80 m/s MV E/A Ratio: 0.62 RAP: 5.00 mmHg RVSP: 11.95 mmHg FINDINGS -------- Paced rhythm. This was a technically adequate study. The left ventricular size is normal. There is moderate concentric left ventricular hypertrophy. O verall left ventricular systolic function is mild-moderately impaired with, an EF between 40 - 45 %. The right ventricle is normal in size and function. The left atrial size is normal. The right atrium is normal in size. Aortic valve is trileaflet and is mildly thickened. The mitral valve leaflets are mildly thickened. Mild mitral regurgitation is present. Mild tricuspid regurgitation present. The right ventricular systolic pressure, as measured by Doppl er, is 11.95mmHg. Pulmonic valve appears structurally normal. 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 Normal inferior vena cava with normal inspiratory collapse consistent with estimated right atrial pre ssure of 5 mmHg. The pericardium is normal. CONCLUSIONS -------- 1. Paced rhythm. 2. This was a technically adequate study. 3. The left ventricular size is normal. 4. There is moderate concentric left ventricular hypertrophy. 5. Overall left ventricular systolic function is mild-moderately impaired with, an EF between 40 - 45 %. 6. The right ventricle is normal in size and function. 7. The left atrial size is normal. 8. The right atrium is normal in size. 9. Aortic valve is trileaflet and is mildly thickened. 10. The mitral valve leaflets are mildly thickened. 11. Mild mitral regurgitation is present. 12. Mild tricuspid regurgitation present. 13. The right ventricular systolic pressure, as measured by Doppler, is 11.95mmHg. 14. Pulmonic valve appears structurally normal. 15. The aortic root and ascending aorta are dilated measuring up to 4.0 16. Normal inferior vena cava with normal inspiratory collapse consistent with estimated right atrial pressure of 5 mmHg. 17. The pericardium is normal. SIGNALING PROJECT ENGINEER: Abigail Kellogg RDCS
[2017-09-30] MEDS: METHOTREXATE SODIUM 2.5 MG TAB PO SCH (15:52)
[2017-09-30] MEDS ORDERED: ARTIFICIAL TEARS-HYPROMELLOSE DROPS 15 ML BTL BOTH EYES PRN (20:56)
--- NOTE | 2017-09-30 22:57 | HP ---
HISTORY AND PHYSICAL ATTENDING PHYSICIAN: Dr. Chaitanya Oconnell. DATE OF SERVICE: 09/29/2017 CHIEF COMPLAINT: Weakness. HISTORY OF PRESENT ILLNESS: This is a 77-year-old female who presents to the emergency room with complaints of generalized weakness. The patient said she is not able to ambulate much without any assistance. She lives at the [facility] apartments of [facility]. She has some assistance available to her. The patient is brought in by her sisters, who live in the same facility, in view of the significant weakness. The patient denied any fever or chills. There was suggestion of possible urinary tract infection as well as borderline troponin elevation and some edema of the lower extremities. The ER physicians insisted on admission to the hospital. The patient is admitted to the hospital with the above symptoms. The patient does complain of generalized weakness. REVIEW OF SYSTEMS: NEURO: Denies any headaches, dizziness. PSYCH: No anxiety. CARDIAC: No chest pain, angina, palpitation. RESPIRATORY: Denies shortness of breath, cough, hemoptysis. Does have some dyspnea on exertion, stable. GI: No nausea, vomiting, abdominal pain, diarrhea, constipation, hematochezia, melena. Appetite fair. : No symptoms of dysuria, hematuria. Does have some incontinence. EXTREMITIES: There is some chronic pain from her rheumatoid arthritis. She has noticed increased swelling of the lower extremities for the past few days. CONSTITUTIONAL: No fever or chills. HEMATOLOGICAL: No bleeding. ENDOCRINE: No history of diabetes mellitus. PAST MEDICAL HISTORY: Significant for rheumatoid arthritis of long standing. She also has had a previous history of hypertension, pacemaker placement. No history of any liver disease, kidney disease. History of some pulmonary hypertension, history of osteoporosis, some peripheral polyneuropathy. PAST SURGICAL HISTORY: Significant for joint surgeries. PERSONAL HISTORY: Nonsmoker. No alcohol. ALLERGIES: To INDOCIN, SULFA, MYRBETRIQ. MEDICATIONS: 1. Aspirin 81 mg daily. 2. Metoprolol tartrate 50 mg b.i.d. 3. Methotrexate 12.5 mg every week. 4. Oxybutynin 5 mg b.i.d. 5. Losartan hydrochlorothiazide 50/12.5 daily. 6. Lipitor 10 mg daily. 7. Zoloft 50 mg daily. SOCIAL HISTORY: Patient is , lives alone. FAMILY MEDICAL HISTORY: One daughter who has a traumatic amputation. No significant communication with her. [facility]. PHYSICAL EXAMINATION: A 77-year-old female who appears in no distress. Vital signs revealed temperature 97.9, pulse 89, respirations 18, blood pressure 163/89, pulse ox of 98% on room air. HEENT: Normocephalic. Neck: Decreased range of motion. Pupils reactive. Nostrils clear. Oral cavity is dry. Ears reveal no drainage. Neck reveals no carotid bruits. No thyromegaly. No supraclavicular lymphadenopathy. CHEST: Clear to percussion. The patient has some dry crackles, especially at the bases. CARDIAC: Distant heart sounds, S1, S2 with no gallops. Systolic murmur 2/6 left sternal border. Regular rhythm. ABDOMEN: Soft. No palpable masses. Bowel sounds normal. No organomegaly. No abdominal bruits. No CVA tenderness. Extremities reveal 2+ edema to 3+ edema. NEUROLOGIC: Awake, alert, oriented x3 with well-coordinated movements. LABORATORY ASSESSMENT: CBC which is essentially normal except for a platelet count 132, and an MCV of 104.8, INR 1.2. Electrolytes normal. BUN 21, creatinine 0.8, glucose random 104. Plasma lactic acid 1.8. AST 48, ALT 59. Troponin 0.250. Albumin 3.0. Urinalysis: Large leukocyte esterase, 152 WBCs, negative nitrite, moderate bacteria. ASSESSMENT: 1. Generalized weakness and debility. 2. Possible urinary tract infection. 3. Rheumatoid arthritis. 4. Marginally elevated troponin with no evidence of any symptoms of angina or infarctions. 5. Pulmonary hypertension with possible right-sided failure. PLAN: Continue present medical regimen with IV antibiotic, diuretics, oxygen. The patient's condition is discussed with the patient. Prognosis guarded. Serial troponins will be done. The patient has may require to go into rehab for her generalized debility. MMODL / IJN: [id number] /
--- NOTE | 2017-09-30 23:12 | PN ---
PROGRESS NOTE DATE OF SERVICE: 09/30/2017. ATTENDING PHYSICIAN: Dr. Halley Oconnell. CHIEF COMPLAINT: Re-evaluation. HISTORY OF PRESENT ILLNESS: This 77-year-old female was admitted to the hospital with generalized weakness. The patient is noted to have suggestion of urinary tract infection and borderline elevated troponins, not due to any coronary ischemia. The patient has demand and supply related abnormality. The patient is feeling better. Her edema is somewhat decreased. She had a significant amount of voiding and incontinence. Actually, today at the time of evaluation, she is sitting up in a bedside chair feeling fairly reasonable. The patient had echocardiogram which revealed mildly decreased LV function, 40 to 45%. There was mild mitral regurg and mild tricuspid regurgitation. pressures were adequate. REVIEW OF SYSTEMS: NEURO: Denies any headaches or dizziness. PSYCH: No anxiety. CARDIAC: No chest pain, angina, palpitations. RESPIRATORY: Denies shortness of breath or cough. GI: No nausea, vomiting, abdominal pain, diarrhea. : No symptoms of dysuria or hematuria. EXTREMITIES: Edema and chronic pain. CONSTITUTIONAL: No fever or chills. PHYSICAL EXAMINATION: Pleasant female, at present in no distress. Vital signs reveal temperature 98, pulse 73, respirations 16, blood pressure 171/104, pulse ox of 93% on room air. HEENT: Normocephalic. NECK: No JVD. CHEST: Clear to auscultation with mild generalized decreased air flow. CARDIAC: Distant heart sounds, S1, S2 with no gallop. Systolic murmur 2/6 left sternal border. ABDOMEN: Soft. Bowel sounds present. EXTREMITIES: 1 to 2+ edema. NEUROLOGIC: Awake, alert, oriented with well-coordinated movements. LAB ASSESSMENT: Electrolytes which are normal. CO2 of 20, BUN 18, creatinine 0.78. ASSESSMENT: 1. Urinary tract infection. 2. Weakness. 3. Rheumatoid arthritis. 4. Congestive cardiac failure secondary to systolic dysfunction. 5. Sick sinus syndrome. PLAN: The patient is stable. Continue present medical regimen. Patient's condition discussed with the patient. Prognosis is guarded. Myocardial infarction has been ruled out. The patient will have OT and PT done potentially if she is not showing any strength and is not fit to be by herself we will recommend rehabilitation. MMODL / IJN: [id number] /
[2017-10-01 06:10] LABS: Calcium 8.4 mg/dL (8.4-10.2); Potassium 4.1 mmol/L (3.5-5.1)
[2017-10-01] MEDS: ASPIRIN 325 MG TAB PO SCH (09:23)
[2017-10-01] MEDS: LOSARTAN-HCTZ 50-12.5 MG 1 EACH TAB PO SCH ×2 (09:24→22:09)
[2017-10-01] MEDS: METOPROLOL TARTRATE 50 MG TAB PO SCH ×2 (09:24→22:09)
[2017-10-01] MEDS: ATORVASTATIN 10 MG TAB PO SCH (09:24)
[2017-10-01] MEDS: FUROSEMIDE 10 MG/ML 2 ML VIAL IV SCH (09:24)
[2017-10-01] MEDS: OXYBUTYNIN CHLORIDE 5 MG TAB PO SCH ×2 (09:25→22:08)
[2017-10-01] MEDS: cefTRIAXone IN SWFI 1,000 MG/10 ML SYRINGE IVP SCH (09:44)
--- NOTE | 2017-10-01 21:04 | PN ---
PROGRESS NOTE ATTENDING PHYSICIAN: Dr. Halley Oconnell. CHIEF COMPLAINT: Re-evaluation. HISTORY OF PRESENT ILLNESS: This 77-year-old female was admitted to the hospital for generalized weakness and evidence of urinary tract infection and anasarca secondary to congestive cardiac failure. The patient has mild CHF with evidence of peripheral edema and decreased ejection fraction. Lungs are clear. The patient has underlying history of rheumatoid arthritis. His significantly improved. REVIEW OF SYSTEMS: Neuro denies any headaches, dizziness. Psych: No anxiety. Cardiac no chest pain, angina or palpitations. Respiratory: No shortness of breath, cough. GI no nausea, vomiting, abdominal pain, diarrhea. no symptoms of dysuria, hematuria. Extremities some edema. Constitutional: No fever, chills. PHYSICAL EXAMINATION: Pleasant female in no distress. Vital signs: Temperature is 97.8, pulse 66, respirations 16, blood pressure 154/93. HEENT: Normocephalic. Neck no JVD. CHEST: Clear to auscultation with a few dry crackles at the right base. Cardiac: Normal S1, S2 with no gallops. Systolic murmur 2/6 left sternal border. The patient has a pacemaker. Extremities reveal trace edema, much improved. NEUROLOGIC: Awake, alert, oriented x3 with well-coordinated movements. LABORATORY ASSESSMENT: Urine culture was positive for gram-negative bacilli, 2 different times. ASSESSMENT: 1. Acute congestive cardiac failure secondary to systolic dysfunction. 2. Sick sinus syndrome. 3. Urinary tract infection. 4. Rheumatoid arthritis. 5. Debility. PLAN: Continue present medical regimen. Patient's condition discussed with the patient. Prognosis guarded. Potential transfer to rehab. MMODL / RAJN: [id number] /
[2017-10-02] MEDS: ASPIRIN 325 MG TAB PO SCH (08:14)
[2017-10-02] MEDS: ATORVASTATIN 10 MG TAB PO SCH (08:14)
[2017-10-02] MEDS: cefTRIAXone IN SWFI 1,000 MG/10 ML SYRINGE IVP SCH (08:14)
[2017-10-02] MEDS: LOSARTAN-HCTZ 50-12.5 MG 1 EACH TAB PO SCH ×2 (08:15→20:31)
[2017-10-02] MEDS: METOPROLOL TARTRATE 50 MG TAB PO SCH ×2 (08:15→20:31)
[2017-10-02] MEDS: FUROSEMIDE 20 MG TAB PO SCH (08:15)
[2017-10-02] MEDS: OXYBUTYNIN CHLORIDE 5 MG TAB PO SCH ×2 (08:15→20:31)
--- NOTE | 2017-10-02 20:50 | PN ---
PROGRESS NOTE ATTENDING PHYSICIAN: Dr. Halley Oconnell. CHIEF COMPLAINT: Re-evaluation. HISTORY OF PRESENT ILLNESS: 77-year-old was admitted to the hospital with significant weakness. Evidence of urinary tract infection, congestive cardiac failure. Both have improved with treatment. She is feeling much better. She feels the best she has had for a while. REVIEW OF SYSTEMS: Neuro: Denies any headaches. Dizziness. Psych no anxiety. Cardiac no chest pain, angina, palpitations. Respiratory: Denies shortness of breath, cough, hemoptysis. GI no nausea, vomiting. : No symptoms of dysuria or hematuria. Extremities: No pain or edema. Constitutional: No fever or chills. PHYSICAL EXAMINATION: Pleasant female in no distress. VITAL SIGNS: Stable. Temperature 97.9, pulse 74, respirations 24, blood pressure 126/84, pulse ox 97% on 3 L nasal cannula. HEENT: Normocephalic. Neck no JVD. CHEST: Clear to auscultation with some dry crackles at the right base. CARDIAC: Distant heart sounds S1, S2 with no gallops. Systolic murmur 2/6 left sternal border and apex. ABDOMEN: Soft. Bowel sounds present. EXTREMITIES: Extremities reveal trace edema. Neurologically awake, alert, oriented with well-coordinated movements. Rheumatoid changes. LABORATORY ASSESSMENT: Urine culture which shows E coli and Proteus mirabilis was sensitive to Rocephin. ASSESSMENT: 1. Acute congestive cardiac failure secondary to systolic dysfunction improved. 2. Urinary tract infection. 3. Bacteremia. 4. Rheumatoid arthritis. 5. Sick sinus syndrome. 6. Hypertension. PLAN: Patient is stable. Continue present medical regimen. The patient's plan for discharge to nursing facility tomorrow. MMODL / IJN: [id number] /
--- NOTE | 2017-10-02 23:02 | DS ---
DISCHARGE SUMMARY CHIEF COMPLAINT: Re-evaluation. PRINCIPLE DIAGNOSES: 1. Acute congestive cardiac failure secondary to systolic dysfunction. 2. Sick sinus syndrome. 3. Cough. 4. Urinary tract infection. 5. Rheumatoid arthritis. 6. Essential hypertension. 7. Mild chronic thrombocytopenia. 8. Mild pulmonary fibrosis. HISTORY OF PRESENT ILLNESS: This elderly female, 77, was admitted to the hospital because of generalized weakness and increasing edema of the lower extremities. The patient also has some dyspnea on exertion. She has evidence of urinary tract infection, treated with Rocephin, and improved. The patient has E coli and Proteus mirabilis, both sensitive to Rocephin. The patient, on discharge, will continue with Keflex 250 mg t.i.d. for 1 week. The patient also will hold methotrexate for one week and then resume at 10 mg weekly. Meanwhile, the patient will continue on diuresis and increase losartan. The patient's general condition is guarded. PROGNOSIS: Guarded. CONDITION: Patient condition stable at the time of discharge. DISCHARGE MEDICATIONS: 1. Keflex 750 mg t.i.d. for 1 week. 2. Losartan 50/12.5 one b.i.d. It can be switched to 100/25 one daily. 3. Artificial Tears both eyes t.i.d. and p.r.n. 4. Aspirin 81 mg daily. 5. Lipitor 10 mg daily. 6. Lasix 20 mg daily. 7. Metoprolol tartrate 50 mg b.i.d. 8. Ditropan 5 mg b.i.d. 9. Methotrexate 10 mg every starting 10/13/2017. DIET: Regular. ACTIVITY: As tolerated, with physical therapy. MMODL / IJN: [id number] /
[2017-10-03 06:25] VITALS: BP 109/76; PULSE 68; RESP 16; TEMP 97.7
[2017-10-03] MEDS: cefTRIAXone IN SWFI 1,000 MG/10 ML SYRINGE IVP SCH ×2 (07:48→07:50)
[2017-10-03] MEDS: OXYBUTYNIN CHLORIDE 5 MG TAB PO SCH (07:49)
[2017-10-03] MEDS: ATORVASTATIN 10 MG TAB PO SCH (07:50)
[2017-10-03] MEDS: ASPIRIN 325 MG TAB PO SCH (07:50)
[2017-10-03] MEDS: FUROSEMIDE 20 MG TAB PO SCH (07:50)
[2017-10-03] MEDS: METOPROLOL TARTRATE 50 MG TAB PO SCH (07:50)
[2017-10-03] MEDS: LOSARTAN-HCTZ 50-12.5 MG 1 EACH TAB PO SCH (07:50)
== END 2017-10-03 11:19 | DRG 689 ==
LOC: EC 11:29 → 6SEL 14:41 → 4MS4W 10-01 00:48
PROVIDERS: ADMIT Internal Medicine; ATTEND Internal Medicine
DX: N39.0 Urinary tract infection, site not specified (principal); I50.21 Acute systolic (congestive) heart failure; R78.81 Bacteremia; I11.0 Hypertensive heart disease with heart failure; R32 Unspecified urinary incontinence; D69.6 Thrombocytopenia, unspecified; I08.1 Rheumatic disorders of both mitral and tricuspid valves; I27.20 Pulmonary hypertension, unspecified; J44.9 Chronic obstructive pulmonary disease, unspecified; J84.10 Pulmonary fibrosis, unspecified; M06.9 Rheumatoid arthritis, unspecified; M81.0 Age-related osteoporosis without current pathological fracture; Z87.440 Personal history of urinary (tract) infections; Z95.0 Presence of cardiac pacemaker; Z96.653 Presence of artificial knee joint, bilateral; Z60.2 Problems related to living alone; Z79.82 Long term (current) use of aspirin; Z79.899 Other long term (current) drug therapy; G62.9 Polyneuropathy, unspecified
CPT/HCPCS: 36415; 71046; 80048; 80053; 80061; 81001; 82550; 82553; 83605; 83880; 84484; 85025; 85610; 85730; 87040; 87077; 87086; 87186; 93005; 93306; 94760; 96374; 99291

== ENCOUNTER 2018-01-10 12:03 | Emergency (ER) | payer MEDICARE, BC ==
[2018-01-10 12:23] VITALS: BP 130/77; PULSE 75; RESP 16; TEMP 98.8
[2018-01-10] MEDS ORDERED: LIDOCAINE 1%-EPI 1:100,000 30 ML VIAL SQ STA (12:58)
--- NOTE | 2018-01-10 13:50 | ED ---
Fall HPI - General Chief Complaint: Fall Stated Complaint: Fall, head laceration Time Seen by Provider: 01/10/18 12:34 Source: patient, RN notes reviewed, old records reviewed Mode of arrival: wheelchair - History of Present Illness Initial Comments: 77-year-old female presents emergency Department chief complaint slip and fall in her bathroom. She reports that she hit her right eyebrow causing a laceration over the right eyebrow. Patient states that she had no loss His Speech Is on Aspirin. She Denies Any Neck or Extremity Pain. She Denies Any Visual Changes. No Pain with Extraocular Eye Movements. - Related Data Home Medications Medication Instructions Recorded Confirmed Metoprolol Tartrate [Lopressor] 50 mg PO BID 09/30/16 09/29/17 Aspirin EC [Ecotrin Low Dose] 81 mg PO DAILY 09/29/17 09/29/17 Oxybutynin Chloride 5 mg PO BID 09/29/17 09/29/17 Previous Rx's Medication Instructions Recorded Atorvastatin Calcium [Lipitor] 10 mg PO DAILY #30 tab 10/02/16 Artificial Tears-Hypromellose 1 drops BOTH EYES TID PRN bottle 10/03/17 [Artificial Tear Drops] Cephalexin [Keflex] 250 mg PO Q8HR #10 capsule 10/03/17 Furosemide [Lasix] 20 mg PO DAILY #0 tab 10/03/17 Losartan-Hctz 50-12.5 mg [Hyzaar 1 each PO BID tab 10/03/17 50-12.5] Allergies Allergy/AdvReac Type Severity Reaction Status Date / Time Sulfa (Sulfonamide Allergy Unknown Unknown Verified 09/29/17 14:15 Antibiotics) Review of Systems ROS Statement: Those systems with pertinent positive or pertinent negative responses have been documented in the HPI. ROS Other: All systems not noted in ROS Statement are negative. Past Medical History Past Medical History: Asthma, COPD, Hypertension, Rheumatoid Arthritis (RA) History of Any Multi-Drug Resistant Organisms: C-DIFF Date of last positivie culture/infection: per pt severl years ago while at [facility] MDRO Source:: . Past Surgical History: Joint Replacement, Pacemaker Additional Past Surgical History / Comment(s): pacemaker placement 2013, oophrectomy, total bilat knee replacements Past Anesthesia/Blood Transfusion Reactions: No Reported Reaction Type of Cardiac Device: Permanent Pacemaker Device Placement Date:: 2013 Past Psychological History: Depression Smoking Status: Never smoker Past Alcohol Use History: Rare Past Drug Use History: None Reported - Past Family History Mother Family Medical History: Cancer Father Family Medical History: Coronary Artery Disease (CAD) General Exam - General Exam Comments Initial Comments: 77-year-old female. Alert and oriented. No significant distress. Limitations: no limitations General appearance: alert, in no apparent distress Head exam: Present: atraumatic, normocephalic, normal inspection, other (2 cm laceration over R eyebrow) Eye exam: Present: normal appearance, PERRL, EOMI. Absent: scleral icterus, conjunctival injection, periorbital swelling ENT exam: Present: normal exam, mucous membranes moist Neck exam: Present: normal inspection. Absent: tenderness, meningismus, lymphadenopathy Respiratory exam: Present: normal lung sounds bilaterally. Absent: respiratory distress, wheezes, rales, rhonchi, stridor Cardiovascular Exam: Present: regular rate, normal rhythm, normal heart sounds. Absent: systolic murmur, diastolic murmur, rubs, gallop, clicks GI/Abdominal exam: Present: soft, normal bowel sounds. Absent: distended, tenderness, guarding, rebound, rigid Extremities exam: Present: normal inspection, full ROM, normal capillary refill. Absent: tenderness, pedal edema, joint swelling, calf tenderness Back exam: Present: normal inspection Course Vital Signs 01/10/18 12:18 Temperature 98.8 F Pulse Rate 75 Respiratory 16 Rate Blood Pressure 130/77 O2 Sat by Pulse 96 Oximetry Procedures - Laceration Laceration #1 Site: face (R eyebrow) Size (cm): 2 Description: linear Depth: simple, single layer Anesthetic Used: lidocaine 1% Anesthesia Technique: local infiltration Amount (mls): 2 Pre-repair: wound explored, irrigated extensively Size of Sutures: 6-0 Number of Sutures: 3 Technique: simple, interrupted Patient Tolerated Procedure: well, no complications Medical Decision Making - Medical Decision Making 77 year old on aspirin fell in bathroom, causing laceration over R eyebrow. CT brain is negative for acute process. No signs of neurological deficits. Patient wound was cleaned with iodine and saline. Wound was sutured and antibiotic ointment over the area. Discussed head injury instructions and suture care. Return parameters discussed. - Radiology Data Radiology results: report reviewed Referring lip shows some asymmetrical attenuation right frontal lobe axis XL [id number]. Chronic atrophy is likely age wrote needed. Or which shows symmetric appearance. Findings are likely to be due to chronic ischemia following up. Angiolytic changes atrophy noted. Disposition Clinical Impression: Fall, Minor head injury, Eyebrow laceration Disposition: HOME SELF-CARE Condition: Good Instructions: Laceration (ED), Fall Prevention for Older Adults (ED) Additional Instructions: Please return to the emergency room in 8-10 days to have sutures removed. Please leave wound covered for the first 24-48 hours and then leave open to air after that time. Please use clean soap and water to clean the suture area to prevent scabbing over the top of your sutures. Please watch for any signs of infection which may include but not limited to increased pain, swelling, redness , fever or chills. Please return to the emergency room if any signs of infection do occur. Please return to the emergency room for any other concerns or complications. Is patient prescribed a controlled substance at d/c from ED?: No Referrals: Yanick Oconnell MD [Primary Care Provider] - 1-2 days Time of Disposition: 14:31
--- NOTE | 2018-01-10 14:24 | CT ---
EXAMINATION TYPE: CT brain wo con DATE OF EXAM: 01/10/2018 COMPARISON: None HISTORY: Fall. Trauma and pain CT DLP: 985.4 mGycm Automated exposure control for dose reduction was used. FINDINGS: Periventricular white matter shows patchy low attenuation. There is no hemorrhage or hydrocephalus. R ight frontal lobe shows some asymmetric low attenuation in the right frontal lobe axial image 40, 39 and 41. Cortical atrophy is likely age-related. Orbits show symmetric appearance. Mastoid air cells a christie aerated. There are cerebral vascular calcifications present. IMPRESSION: FINDINGS FELT LIKELY TO BE DUE TO CHRONIC ISCHEMIA, FOLLOW-UP INDICATED. AGE-RELATED CHANGES OF AT ROPHY.
--- NOTE | 2018-01-13 06:30 | CDI ---
Dear TIM Hernandez: Please do addendum to ED report that describes the Eyebrow laceration . Please include the length and depth of the repair. Thank you, sari lackey Hand Packager If you have any question, Please contact coding coordinator at [phone] [facility]
== END 2018-01-10 14:45 | disposition home or self-care (01) ==
LOC: EC 12:03
DX: S01.111A Laceration without foreign body of right eyelid and periocular area, initial encounter (principal); G31.89 Other specified degenerative diseases of nervous system; I10 Essential (primary) hypertension; M06.9 Rheumatoid arthritis, unspecified; Z79.82 Long term (current) use of aspirin; Z79.899 Other long term (current) drug therapy; Z88.2 Allergy status to sulfonamides; Z96.653 Presence of artificial knee joint, bilateral; Z95.0 Presence of cardiac pacemaker; W01.10XA Fall on same level from slipping, tripping and stumbling with subsequent striking against unspecified object, initial encounter; Y92.89 Other specified places as the place of occurrence of the external cause
CPT/HCPCS: 12011; 70450; 99284

== ENCOUNTER → 2018-07-12 | Outpatient (CLI) | payer MEDICARE, BC ==
--- NOTE | 2018-07-12 13:54 | US ---
EXAMINATION TYPE: US kidneys/renal and bladder DATE OF EXAM: 07/12/2018 COMPARISON: NONE CLINICAL HISTORY: N18.3 CKD stage 3. Patient stated has no bladder sensation to empty bladder since t aking medication to help empty bladder. EXAM MEASUREMENTS: Right Kidney: 8.9 x 5.4 x 4.2 cm Left Kidney: 8.3 x 4.6 x 3.7 cm Post Void Residual Volume: 224 mL based on patient's attempt to empty bladder Right Kidney: mild hydronephrosis; mid lateral simple cortical cyst = 0.8 x 0.8 x 0.6cm; multiple gagan rocalcifications noted throughout Left Kidney: multiple microcalcifications noted throughout Bladder: wnl Bilateral Jets seen: no, small left ureteral jet was seen Normal Post Void Residual: No, volume should be less than 50 mL. Urinary retention is present. No masses are identified. The urinary bladder is anechoic. IMPRESSION: 1. Mild right hydronephrosis. 2. Mid right renal cortex simple cyst. 3. Urinary retention
== END | disposition home or self-care (01) ==
LOC: RADUSWWP 10:35
PROVIDERS: ATTEND Internal Medicine
DX: N13.30 Unspecified hydronephrosis (principal); N28.1 Cyst of kidney, acquired; R33.9 Retention of urine, unspecified; N18.3 Chronic kidney disease, stage 3 (moderate)
CPT/HCPCS: 76770

== ENCOUNTER 2018-08-16 16:04 | Inpatient (IN) | payer MEDICARE, BC ==
[2018-08-16] MEDS ORDERED: SODIUM CHLORIDE 0.9% 500 ML 500 ML IV STA (16:24)
--- NOTE | 2018-08-16 16:30 | ED ---
General Adult HPI - General Chief complaint: Weakness Stated complaint: weakness Time Seen by Provider: 08/16/18 16:20 Source: patient, RN notes reviewed, old records reviewed Mode of arrival: EMS Limitations: physical limitation - History of Present Illness Initial comments: 77-year-old female presenting for evaluation of generalized weakness and incre ased urinary frequency. Patient is somewhat poor historian however, she is able to answer simple questions. She denies chest pain or dyspnea. Denies fever or chills. She had one episode of vomiting. No abdominal pain. No diarrhea. Denies focal numbness or weakness. Denies headache. Denies vision changes. - Related Data Home Medications Medication Instructions Recorded Confirmed Metoprolol Tartrate [Lopressor] 50 mg PO BID 09/30/16 08/16/18 Aspirin EC [Ecotrin Low Dose] 81 mg PO DAILY 09/29/17 08/16/18 Oxybutynin Chloride 5 mg PO BID 09/29/17 08/16/18 Atorvastatin Calcium [Lipitor] 10 mg PO HS 08/16/18 08/16/18 Losartan-Hctz 50-12.5 mg [Hyzaar 1 tab PO BID 08/16/18 08/16/18 50-12.5] Allergies Allergy/AdvReac Type Severity Reaction Status Date / Time Sulfa (Sulfonamide Allergy Unknown Unknown Verified 08/16/18 16:51 Antibiotics) Review of Systems ROS Statement: Those systems with pertinent positive or pertinent negative responses have been documented in the HPI. ROS Other: All systems not noted in ROS Statement are negative. Past Medical History Past Medical History: Asthma, COPD, Hypertension, Rheumatoid Arthritis (RA) History of Any Multi-Drug Resistant Organisms: MRSA Date of last positivie culture/infection: unknown MDRO Source:: . Past Surgical History: Joint Replacement, Pacemaker Additional Past Surgical History / Comment(s): pacemaker placement 2013, oophrectomy, total bilat knee replacements Past Anesthesia/Blood Transfusion Reactions: No Reported Reaction Type of Cardiac Device: Permanent Pacemaker Device Placement Date:: 2013 Past Psychological History: Depression Smoking Status: Never smoker Past Alcohol Use History: Rare Past Drug Use History: None Reported - Past Family History Mother Family Medical History: Cancer Father Family Medical History: Coronary Artery Disease (CAD) General Exam Limitations: physical limitation General appearance: alert, in no apparent distress Head exam: Present: atraumatic, normocephalic Eye exam: Present: normal appearance, PERRL ENT exam: Present: mucous membranes dry Neck exam: Present: normal inspection. Absent: tenderness, meningismus Respiratory exam: Present: normal lung sounds bilaterally. Absent: respiratory distress, wheezes Cardiovascular Exam: Present: regular rate, normal rhythm GI/Abdominal exam: Present: soft. Absent: distended, tenderness, guarding Extremities exam: Present: normal inspection, normal capillary refill. Absent: pedal edema Neurological exam: Present: alert, CN II-XII intact. Absent: motor sensory deficit Psychiatric exam: Present: normal affect, normal mood Skin exam: Present: warm, dry, intact. Absent: cyanosis, diaphoretic Course Vital Signs 08/16/18 16:10 Temperature 99.2 F Pulse Rate 94 Respiratory 20 Rate Blood Pressure 134/79 O2 Sat by Pulse 97 Oximetry EKG Findings - EKG Comments: EKG Findings:: EKG: Electronic pacemaker rate of 85, SC interval 190, QRS duration 158, QTC 499 Medical Decision Making - Medical Decision Making 77-year-old female with generalized weakness increased urinary frequency. Patient well-appearing with stable vitals. She has no pain complaints. Workup was initiated in the emergency department. She has a white blood cell count 14. Hemoglobin is 13.5, creatinine 1.49 which is mildly elevated above baseline. She has a urinalysis with nitrate positive, greater than 182 red cells, greater than 182 white cells. Urine culture is pending. She had mild elevated bili and elevated AST and ALT. Ultrasound was performed which was negative for acute cholecystitis, showed multiple gallstones, and concern for right hydronephrosis. Chest x-ray negative for focal pneumonia. Head CT shows an old infarction with no acute change. Patient is started on IV fluid and IV antibiotics. She will be admitted for treatment of urinary tract infection. - Lab Data Result diagrams: 08/16/18 17:20 08/16/18 17:20 Lab Results 08/16/18 08/16/18 08/16/18 Range/Units 17:20 17:20 17:20 WBC 13.9 H (3.8-10.6) k/uL RBC 4.71 (3.80-5.40) m/uL Hgb 13.5 (11.4-16.0) gm/dL Hct 43.4 (34.0-46.0) % MCV 92.2 (80.0-100.0) fL MCH 28.7 (25.0-35.0) pg MCHC 31.2 (31.0-37.0) g/dL RDW 13.6 (11.5-15.5) % Plt Count 208 (150-450) k/uL Neutrophils % 81 % Lymphocytes % 11 % Monocytes % 7 % Eosinophils % 0 % Basophils % 0 % Neutrophils # 11.3 H (1.3-7.7) k/uL Lymphocytes # 1.5 (1.0-4.8) k/uL Monocytes # 0.9 (0-1.0) k/uL Eosinophils # 0.1 (0-0.7) k/uL Basophils # 0.0 (0-0.2) k/uL PT (9.0-12.0) sec INR (<1.2) APTT (22.0-30.0) sec Sodium 138 (137-145) mmol/L Potassium 3.9 (3.5-5.1) mmol/L Chloride 101 (98-107) mmol/L Carbon Dioxide 24 (22-30) mmol/L Anion Gap 13 mmol/L BUN 28 H (7-17) mg/dL Creatinine 1.49 H (0.52-1.04) mg/dL Est GFR (CKD-EPI)AfAm 38 (>60 ml/min/1.73 sqM) Est GFR (CKD-EPI)NonAf 33 (>60 ml/min/1.73 sqM) Glucose 116 H (74-99) mg/dL Plasma Lactic Acid Hector 1.8 (0.7-2.0) mmol/L Calcium 8.7 (8.4-10.2) mg/dL Magnesium 1.9 (1.6-2.3) mg/dL Total Bilirubin 1.6 H (0.2-1.3) mg/dL AST 39 H (14-36) U/L ALT 66 H (9-52) U/L Alkaline Phosphatase 115 (38-126) U/L Troponin I (0.000-0.034) ng/mL Total Protein 6.4 (6.3-8.2) g/dL Albumin 3.5 (3.5-5.0) g/dL Urine Color Urine Appearance (Clear) Urine pH (5.0-8.0) Ur Specific [place] (1.001-1.035) Urine Protein (Negative) Urine Glucose (UA) (Negative) Urine Ketones (Negative) Urine Blood (Negative) Urine Nitrite (Negative) Urine Bilirubin (Negative) Urine Urobilinogen (<2.0) mg/dL Ur Leukocyte Esterase (Negative) Urine RBC (0-5) /hpf Urine WBC (0-5) /hpf Urine WBC Clumps (None) /hpf 08/16/18 08/16/18 08/16/18 Range/Units 17:20 17:20 19:43 WBC (3.8-10.6) k/uL RBC (3.80-5.40) m/uL Hgb (11.4-16.0) gm/dL Hct (34.0-46.0) % MCV (80.0-100.0) fL MCH (25.0-35.0) pg MCHC (31.0-37.0) g/dL RDW (11.5-15.5) % Plt Count (150-450) k/uL Neutrophils % % Lymphocytes % % Monocytes % % Eosinophils % % Basophils % % Neutrophils # (1.3-7.7) k/uL Lymphocytes # (1.0-4.8) k/uL Monocytes # (0-1.0) k/uL Eosinophils # (0-0.7) k/uL Basophils # (0-0.2) k/uL PT 13.2 H (9.0-12.0) sec INR 1.3 H (<1.2) APTT 23.9 (22.0-30.0) sec Sodium (137-145) mmol/L Potassium (3.5-5.1) mmol/L Chloride (98-107) mmol/L Carbon Dioxide (22-30) mmol/L Anion Gap mmol/L BUN (7-17) mg/dL Creatinine (0.52-1.04) mg/dL Est GFR (CKD-EPI)AfAm (>60 ml/min/1.73 sqM) Est GFR (CKD-EPI)NonAf (>60 ml/min/1.73 sqM) Glucose (74-99) mg/dL Plasma Lactic Acid Hector (0.7-2.0) mmol/L Calcium (8.4-10.2) mg/dL Magnesium (1.6-2.3) mg/dL Total Bilirubin (0.2-1.3) mg/dL AST (14-36) U/L ALT (9-52) U/L Alkaline Phosphatase (38-126) U/L Troponin I 0.090 H* (0.000-0.034) ng/mL Total Protein (6.3-8.2) g/dL Albumin (3.5-5.0) g/dL Urine Color Light Red Urine Appearance Turbid H (Clear) Urine pH 5.5 (5.0-8.0) Ur Specific [place] 1.018 (1.001-1.035) Urine Protein 1+ H (Negative) Urine Glucose (UA) Negative (Negative) Urine Ketones 1+ H (Negative) Urine Blood Small (Negative) Urine Nitrite Positive H (Negative) Urine Bilirubin Negative (Negative) Urine Urobilinogen <2.0 (<2.0) mg/dL Ur Leukocyte Esterase Large (Negative) Urine RBC >182 H (0-5) /hpf Urine WBC >182 H (0-5) /hpf Urine WBC Clumps Many H (None) /hpf Disposition Clinical Impression: Dehydration, UTI (urinary tract infection), Sepsis Disposition: ADMITTED IP TO THIS HOSP Condition: Stable Is patient prescribed a controlled substance at d/c from ED?: No Referrals: Yanick Oconnell MD [Primary Care Provider] - 1-2 days Decision to Admit Reason: Admit from EC Decision Date: 08/16/18 Decision Time: 20:48
[2018-08-16 17:42] LABS: Basophils % (A) 0 %; Eosinophils # (A) 0.1 k/uL (0-0.7); Eosinophils % (A) 0 %; HCT 43.4 % (34.0-46.0); HGB 13.5 gm/dL (11.4-16.0); Lymphocytes # (A) 1.5 k/uL (1.0-4.8); Lymphocytes % (A) 11 %; MCH 28.7 pg (25.0-35.0); MCHC 31.2 g/dL (31.0-37.0); MCV 92.2 fL (80.0-100.0); Mean Platelet Volume 7.3; Monocytes # (A) 0.9 k/uL (0-1.0); Monocytes % (A) 7 %; Neutrophils # (A) 11.3 k/uL (1.3-7.7); Neutrophils % (A) 81 %; Platelet Count 208 k/uL (150-450); RBC 4.71 m/uL (3.80-5.40); RDW 13.6 % (11.5-15.5); WBC 13.9 k/uL (3.8-10.6)
[2018-08-16 17:50] LABS: INR 1.3 (<1.2); Partial Thromboplastin Time 23.9 sec (22.0-30.0); Prothrombin Time 13.2 sec (9.0-12.0)
[2018-08-16 17:56] LABS: Albumin 3.5 g/dL (3.5-5.0); Calcium 8.7 mg/dL (8.4-10.2); Magnesium 1.9 mg/dL (1.6-2.3); Potassium 3.9 mmol/L (3.5-5.1); Total Bilirubin 1.6 mg/dL (0.2-1.3); Total Protein 6.4 g/dL (6.3-8.2)
--- NOTE | 2018-08-16 18:17 | CT ---
EXAMINATION TYPE: CT brain wo con DATE OF EXAM: 08/16/2018 COMPARISON: 01/10/2018 HISTORY: Weakness, altered mental status. CT DLP: 1182.4 mGycm Automated exposure control for dose reduction was used. FINDINGS: There is cerebral cortical atrophy. There is hypodensity in the periventricular white matter. There i s 2 cm old right posterior frontal lobe cortical infarct. There is no midline shift. There is no sign of intracranial hemorrhage. Calvarium is intact. IMPRESSION: CEREBRAL ATROPHY AND CHRONIC SMALL VESSEL ISCHEMIA. 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 NO ACUTE ABNO RMALITY. NO CHANGE COMPARED TO OLD EXAM.
--- NOTE | 2018-08-16 18:18 | XR ---
EXAMINATION TYPE: XR chest 2V DATE OF EXAM: 08/16/2018 COMPARISON: 09/29/2017 HISTORY: Weakness TECHNIQUE: Frontal and lateral views of the chest are obtained. FINDINGS: Heart is normal. Lungs are clear of consolidation. The thoracic aorta is atheromatous. The re is no heart failure. There is small linear density at the right lung base. There is a left axillar y pacemaker. There is no pleural effusion. There is osteopenia. IMPRESSION: Minimal subsegmental atelectasis right lower lobe. No heart failure. No pulmonary consol idation. Heart and lungs overall not significantly different than old exam.
[2018-08-16] MEDS ORDERED: cefTRIAXone IN SWFI 1,000 MG/10 ML SYRINGE IVP STA (19:22)
[2018-08-16] MEDS: SODIUM CHLORIDE 0.9% 1,000 ML IV SCH (19:30)
[2018-08-16 20:06] LABS: Appearance,Urine Turbid (Clear); Color,Urine Light Red; PH, Urine 5.5 (5.0-8.0); Protein,Urine 1+ (Negative); RBC,Urine >182 /hpf (0-5); Specific Gravity,Urine 1.018 (1.001-1.035); WBC,Urine >182 /hpf (0-5)
[2018-08-16 20:07] LABS: Bilirubin,Urine Negative (Negative); Blood,Urine Small (Negative); Glucose,Urine (UA) Negative (Negative); Ketones,Urine 1+ (Negative); Leukocyte Esterase,Urine Large (Negative); Nitrite,Urine Positive (Negative); Urobilinogen,Urine <2.0 mg/dL (<2.0)
--- NOTE | 2018-08-16 20:36 | US ---
EXAMINATION TYPE: US gallbladder DATE OF EXAM: 08/16/2018 COMPARISON: NONE CLINICAL HISTORY: Pain. Pain EXAM MEASUREMENTS: Liver Length: 13.5 cm Gallbladder Wall: 0.3 cm CBD: 0.6 cm Right Kidney: 9.8 x 5.5 x 3.9 cm Pancreas: wnl Liver: wnl Gallbladder: Multiple gallstones seen. Evidence for sonographic Johansen's sign: No CBD: Upper limits Right Kidney: Hydronephrosis visualized. IMPRESSION: Gallbladder is filled with gallstones. No dilated ducts. There is moderate right sided hy dronephrosis noted. Hydronephrosis appears new compared to old CT scan of 10/01/2016.
[2018-08-16] MEDS ORDERED: ACETAMINOPHEN TAB 325 MG TAB PO PRN (21:03)
[2018-08-16] MEDS ORDERED: NALOXONE 0.4 MG/ML 1 ML VIAL IV PRN (21:03)
--- NOTE | 2018-08-17 00:30 | P.HPIM ---
History of Present Illness H&P Date: 08/17/18 The patient is a 77 yo F with a PMH of COPD, HTN, CKD, rheumatoid arthritis, and pacemaker placement presented to the ED for lethargy and weakness. The patient reports that she came at the insistence of her sister who noted that she had been a lot weaker recently and was concerned about her. The patient notes that she did notice an increased urinary frequency over the past few days and reports that she often gets UTIs. She otherwise denied additional complaints. Denied dysuria, fever, chills, nausea, or vomiting. She further denied fever, chills, cough, abdominal pain, or diarrhea. She underwent an extensive evaluation in the ED w/ CT Head showing chronic small vessel ischemic changes, Gallbladder US showing many gall stones w/ moderate R sided hydronephrosis; CXR unremarkable; and EKG showing V-paced rhythm @ 85 bpm. Laboratory evaluation revealed a WBC count 13.9, Cr 1.49, Troponin 0.090, UA consistent w/ a UTI, and total bilirubin 1.6. She is thereby admitted to the medicine service for UTI. Review of Systems Pertinent positives and negatives as discussed in HPI, a complete review of systems was performed and all other systems are negative. Past Medical History Past Medical History: Asthma, COPD, Hypertension, Rheumatoid Arthritis (RA) History of Any Multi-Drug Resistant Organisms: MRSA Date of last positivie culture/infection: unknown MDRO Source:: . Past Surgical History: Joint Replacement, Pacemaker Additional Past Surgical History / Comment(s): pacemaker placement 2013, ooph rectomy, total bilat knee replacements Past Anesthesia/Blood Transfusion Reactions: No Reported Reaction Type of Cardiac Device: Permanent Pacemaker Device Placement Date:: 2013 Past Psychological History: Depression Smoking Status: Never smoker Past Alcohol Use History: Rare Past Drug Use History: None Reported - Past Family History Mother Family Medical History: Cancer Father Family Medical History: Coronary Artery Disease (CAD) Medications and Allergies Home Medications Medication Instructions Recorded Confirmed Type Metoprolol Tartrate [Lopressor] 50 mg PO BID 09/30/16 08/16/18 History Aspirin EC [Ecotrin Low Dose] 81 mg PO DAILY 09/29/17 08/16/18 History Oxybutynin Chloride 5 mg PO BID 09/29/17 08/16/18 History Atorvastatin Calcium [Lipitor] 10 mg PO HS 08/16/18 08/16/18 History Losartan-Hctz 50-12.5 mg [Hyzaar 1 tab PO BID 08/16/18 08/16/18 History 50-12.5] Allergies Allergy/AdvReac Type Severity Reaction Status Date / Time Sulfa (Sulfonamide Allergy Unknown Unknown Verified 08/16/18 16:51 Antibiotics) Physical Exam Vitals: Vital Signs Temp Pulse Pulse Resp BP BP Pulse Ox 08/16/18 22:00 98.0 F 87 15 129/85 97 08/16/18 21:43 99.7 F H 90 18 124/97 98 08/16/18 16:10 99.2 F 94 20 134/79 97 Intake and Output 08/16/18 08/16/18 08/17/18 14:59 22:59 06:59 Other: Weight 58.967 kg General: Elderly female, non toxic, no distress, appears at stated age, normal weight Derm: no unusual rashes/lesions no unusual ecchymoses, warm, dry Head: atraumatic, normocephalic, symmetric Eyes: EOMI, no lid lag, anicteric sclera, pupils equal round reactive to light ENT: Nose and ears atraumatic, no thrush, no pharyngeal erythema Neck: No thyromegaly, no cervical lymphadenopathy, trachea midline, supple Mouth: no lip lesion, mucus membranes moist Cardiovascular: S1S2 reg, no murmur, positive posterior tibial pulse bilateral, no edema, capillary refill less than 2 seconds Lungs: CTA bilateral, no rhonchi, no rales , no accessory muscle use Abdominal: soft, nontender to palpation, no guarding, no appreciable organomegaly, normal bowel sounds Ext: no gross muscle atrophy, deformities of hands noted with boutonniere and swan-neck, ulnar deviation also noted, muscle strength 4 out of 5 in all 4 extremities grossly, no contractures Neuro: CN II-XI grossly intact, light touch intact all 4 extremities, finger to nose within normal limits, Psych: Alert, awake, oriented to self and place, and partially to time Results CBC & Chem 7: 08/16/18 17:20 08/16/18 17:20 Labs: Abnormal Lab Results - Last 24 Hours (Table) 08/16/18 08/16/18 08/16/18 Range/Units 17:20 17:20 17:20 WBC 13.9 H (3.8-10.6) k/uL Neutrophils # 11.3 H (1.3-7.7) k/uL PT 13.2 H (9.0-12.0) sec INR 1.3 H (<1.2) BUN 28 H (7-17) mg/dL Creatinine 1.49 H (0.52-1.04) mg/dL Glucose 116 H (74-99) mg/dL Total Bilirubin 1.6 H (0.2-1.3) mg/dL AST 39 H (14-36) U/L ALT 66 H (9-52) U/L Troponin I (0.000-0.034) ng/mL Urine Appearance (Clear) Urine Protein (Negative) Urine Ketones (Negative) Urine Nitrite (Negative) Urine RBC (0-5) /hpf Urine WBC (0-5) /hpf Urine WBC Clumps (None) /hpf 08/16/18 08/16/18 Range/Units 17:20 19:43 WBC (3.8-10.6) k/uL Neutrophils # (1.3-7.7) k/uL PT (9.0-12.0) sec INR (<1.2) BUN (7-17) mg/dL Creatinine (0.52-1.04) mg/dL Glucose (74-99) mg/dL Total Bilirubin (0.2-1.3) mg/dL AST (14-36) U/L ALT (9-52) U/L Troponin I 0.090 H* (0.000-0.034) ng/mL Urine Appearance Turbid H (Clear) Urine Protein 1+ H (Negative) Urine Ketones 1+ H (Negative) Urine Nitrite Positive H (Negative) Urine RBC >182 H (0-5) /hpf Urine WBC >182 H (0-5) /hpf Urine WBC Clumps Many H (None) /hpf Thrombosis Risk Factor Assmnt - Choose All That Apply Any of the Below Risk Factors Present?: Yes Each Factor Represents 1 point: Abnormal pulmonary function (COPD) Other Risk Factors: Yes Each Risk Factor Represents 3 Points: Age 75 years or older Thrombosis Risk Factor Assessment Total Risk Factor Score: 4 Thrombosis Risk Factor Assessment Level: Moderate Risk Assessment and Plan Plan: UTI -C/w Ceftriaxone 1g qd -F/u urine and blood cultures -F/u CBC for leukocytosis -C/w IVFs 75 cc/hr NS -PT consult for lethargy ASHUTOSH vs CKD -Monitor BMP Troponin elevation -Likely due to active infection -Will trend for now Elevated Bilirubin -Gallbladder US reviewed -Monitor LFTs for now DVT prophylaxis -Heparin The patient is admitted with an anticipated greater than 2 midnight stay for evaluation of UTI. CODE STATUS:Full Code Discussed with: Patient Anticipated discharge date: 08/19/[address]: Home A total of 40 minutes was spent on the care of this complex patient more than 50% of the time was spent in counseling and care coordination.
[2018-08-17 07:56] LABS: HGB 11.8 gm/dL (11.4-16.0); MCH 28.7 pg (25.0-35.0); MCHC 31.1 g/dL (31.0-37.0); MCV 92.5 fL (80.0-100.0); Platelet Count 179 k/uL (150-450); RDW 13.9 % (11.5-15.5); WBC 11.7 k/uL (3.8-10.6)
[2018-08-17 08:00] LABS: Albumin 2.6 g/dL (3.5-5.0); Calcium 7.7 mg/dL (8.4-10.2); Potassium 3.4 mmol/L (3.5-5.1); Total Bilirubin 1.5 mg/dL (0.2-1.3); Total Protein 5.4 g/dL (6.3-8.2)
[2018-08-17] MEDS: OXYBUTYNIN CHLORIDE 5 MG TAB PO SCH ×2 (08:28→21:55)
[2018-08-17] MEDS: SODIUM CHLORIDE 0.9% 1,000 ML IV SCH ×2 (08:28→22:18)
[2018-08-17] MEDS: ASPIRIN 81 MG PO SCH (08:28)
[2018-08-17] MEDS: HEPARIN SODIUM,PORCINE 5,000 UNIT/ML 1 ML VIAL SQ SCH ×2 (08:28→21:55)
--- NOTE | 2018-08-17 12:09 | CONS ---
CONSULTATION Nannette is a 77-year-old lady with history of hypertension, chronic renal disease, rheumatoid arthritis, COPD, and permanent pacemaker, who was admitted to the hospital with symptoms of urinary frequency and not feeling well, she had been diagnosed with urinary tract infection and Cardiology had been consulted because of mildly elevated troponin. She has underlying renal insufficiency with a creatinine of 1.4, her creatinine is at 0.09. EKG shows paced rhythm. The patient does not have any chest pain and does not have any cardiac symptoms. I believe elevated troponin is related to renal insufficiency and does not require any further workup at this time. We will do an echocardiogram to assess her LV function. PAST MEDICAL HISTORY: Significant for hypertension, rheumatoid arthritis, COPD, asthma. PAST SURGICAL HISTORY: Significant for permanent pacemaker. MEDICATIONS: Medications at home include Lopressor 50 b.i.d., aspirin 81 mg daily, Lipitor 10 mg daily, and Hyzaar. ALLERGIES: SULFA. FAMILY HISTORY: Negative for premature coronary artery disease. SOCIAL HISTORY: Negative for current smoking, EtOH abuse, or drug abuse. REVIEW OF SYSTEMS: HEENT is unremarkable. CARDIAC as described above. RESPIRATORY as described above. GI negative. GENITOURINARY: Significant for urinary tract infection. PSYCHOSOCIAL: Negative. ENDOCRINE: Negative. HEMATOLOGICAL: Negative. DERM: Negative. CONSTITUTIONAL: Significant for UTI. Rest of the system review is not relevant. PHYSICAL EXAMINATION: On exam, patient is comfortable at rest. Afebrile. Vital signs are stable. There is no jugular venous distention. Carotid upstroke is normal. There is no bruit. Chest exam reveals good air entry bilaterally. Heart exam reveals first and second heart sounds. Systolic murmur at the left lower sternal border. Abdomen is soft. Exam of extremities did not reveal any edema. Peripheral pulses are felt. LAB: Showed that the hemoglobin is 11.8. Troponins are 0.09 and 0.1, creatinine is 1.3. ASSESSMENT: 1. Elevated troponin secondary to renal insufficiency. 2. Urinary tract infection. 3. History of permanent pacemaker. PLAN: We will obtain a 2D echo. No other workup is needed at this time for the elevated troponin. MMODL / IJN: [id number] /
--- NOTE | 2018-08-17 13:41 | P.PN ---
Subjective Progress Note Date: 08/17/18 Patient seen and examined at bedside, reports poor sleep and fatigued and weak.Low-grade fever of 100.1 overnight. White count decreasing from 14-11.7. Serum potassium 3.4, creatinine down to 1.37. Troponin trending up to 0.18 patient denies any chest pain, shortness of breath. No acute events overnight Objective - Vital Signs Vital signs: Vital Signs Temp 98.0 F 08/17/18 07:00 Pulse 78 08/17/18 07:00 Resp 16 08/17/18 07:00 BP 119/74 08/17/18 07:00 Pulse Ox 98 08/17/18 07:00 Intake & Output 08/16/18 08/17/18 08/17/18 18:59 06:59 18:59 Intake Total 420 Balance 420 Weight 58.967 kg Intake: Oral 420 Other: # Voids 1 - Exam Constitutional: No acute distress, conversant, pleasant Eyes: Anicteric sclerae, moist conjunctiva, no lid-lag, PERRLA ENMT: NC/AT,Oropharynx clear, no erythema, exudates Neck:Supple, FROM, no masses, or JVD, No carotid bruits; No thyromegaly Lungs: Clear to auscultation, Clear to percussion, Normal respiratory effort, no accessory muscle use Cardiovascular: Heart regular in rate and rhythm, No murmurs, gallops, or rubs no peripheral edema Abdominal: Soft Nontender, nom distended, no guarding, no rebound or rigidity, Normoactive bowel sounds No hepatomegaly, No splenomegaly, No palpable mass No abdominal wall hernia noted Skin: Normal temperature, tone, texture, turgor, No induration No subcutaneous nodules, No rash, lesions, No ulcers Extremities:No digital cyanosis No clubbing, Pedal pulses intact and symmetrical Radial pulses intact and symmetrical Normal gait and station, No c jose tenderness Psychiatric: Alert and oriented to person, place and time, Appropriate affect Intact judgement Neuro: Muscles Strength 5/5 in all 4 extremities, Sensation to light touch grossly present throughout, Cranial nerves II-XII grossly intact. No focal sensory deficits - Labs CBC & Chem 7: 08/17/18 07:29 08/17/18 07:29 Labs: Abnormal Lab Results - Last 24 Hours (Table) 08/16/18 08/16/1819 Range/Units 17:20 17:20 17:20 WBC 13.9 H (3.8-10.6) k/uL Neutrophils # 11.3 H (1.3-7.7) k/uL PT 13.2 H (9.0-12.0) sec INR 1.3 H (<1.2) Potassium (3.5-5.1) mmol/L BUN 28 H (7-17) mg/dL Creatinine 1.49 H (0.52-1.04) mg/dL Glucose 116 H (74-99) mg/dL Calcium (8.4-10.2) mg/dL Total Bilirubin 1.6 H (0.2-1.3) mg/dL AST 39 H (14-36) U/L ALT 66 H (9-52) U/L Troponin I (0.000-0.034) ng/mL Total Protein (6.3-8.2) g/dL Albumin (3.5-5.0) g/dL Urine Appearance (Clear) Urine Protein (Negative) Urine Ketones (Negative) Urine Nitrite (Negative) Urine RBC (0-5) /hpf Urine WBC (0-5) /hpf Urine WBC Clumps (None) /hpf 08/16/18 08/16/18 08/17/18 Range/Units 17:20 19:43 07:29 WBC (3.8-10.6) k/uL Neutrophils # (1.3-7.7) k/uL PT (9.0-12.0) sec INR (<1.2) Potassium (3.5-5.1) mmol/L BUN (7-17) mg/dL Creatinine (0.52-1.04) mg/dL Glucose (74-99) mg/dL Calcium (8.4-10.2) mg/dL Total Bilirubin (0.2-1.3) mg/dL AST (14-36) U/L ALT (9-52) U/L Troponin I 0.090 H* 0.179 H* (0.000-0.034) ng/mL Total Protein (6.3-8.2) g/dL Albumin (3.5-5.0) g/dL Urine Appearance Turbid H (Clear) Urine Protein 1+ H (Negative) Urine Ketones 1+ H (Negative) Urine Nitrite Positive H (Negative) Urine RBC >182 H (0-5) /hpf Urine WBC >182 H (0-5) /hpf Urine WBC Clumps Many H (None) /hpf 08/17/18 08/17/18 Range/Units 07:29 07:29 WBC 11.7 H (3.8-10.6) k/uL Neutrophils # (1.3-7.7) k/uL PT (9.0-12.0) sec INR (<1.2) Potassium 3.4 L (3.5-5.1) mmol/L BUN 26 H (7-17) mg/dL Creatinine 1.37 H (0.52-1.04) mg/dL Glucose 122 H (74-99) mg/dL Calcium 7.7 L (8.4-10.2) mg/dL Total Bilirubin 1.5 H (0.2-1.3) mg/dL AST 81 H (14-36) U/L ALT 84 H (9-52) U/L Troponin I (0.000-0.034) ng/mL Total Protein 5.4 L (6.3-8.2) g/dL Albumin 2.6 L (3.5-5.0) g/dL Urine Appearance (Clear) Urine Protein (Negative) Urine Ketones (Negative) Urine Nitrite (Negative) Urine RBC (0-5) /hpf Urine WBC (0-5) /hpf Urine WBC Clumps (None) /hpf Microbiology - Last 24 Hours (Table) 08/16/18 19:43 Urine Culture - Preliminary Urine,Catheterized Assessment and Plan (1) Sepsis Narrative/Plan: * Secondary to UTI and urine cultures showing preliminary E. coli and Proteus, blood cultures pending, chest x-ray showing minimal subsegmental atelectasis right lower lobe no heart failure pulmonary consolidation * Both cultures susceptible to Rocephin * plan continue with current antibiotic regimen on Rocephin Current Visit: Yes Status: Acute Code(s): A41.9 - SEPSIS, UNSPECIFIED ORGANISM SNOMED Code(s): 77824925 (2) Acute kidney injury Narrative/Plan: * Acute kidney injury versus chronic in disease versus possibly superimposed on chronic kidney disease * Creatinine trending down * Likely prerenal secondary to dehydration/sepsis Current Visit: Yes Status: Acute Code(s): N17.9 - ACUTE KIDNEY FAILURE, UNSPECIFIED SNOMED Code(s): 15085364 (3) UTI (urinary tract infection) Current Visit: Yes Status: Acute Code(s): N39.0 - URINARY TRACT INFECTION, SITE NOT SPECIFIED SNOMED Code(s): 65658020 (4) Elevated troponin Narrative/Plan: * Troponin elevation and trending up to 0.18 * Possibly demand ischemia in the setting of likely underlying kidney disease * History of systolic CHF with last known EF of 40-45%, consult cardiology Current Visit: Yes Status: Acute Code(s): R74.8 - ABNORMAL LEVELS OF OTHER SERUM ENZYMES SNOMED Code(s): 148708210 (5) Systolic CHF, chronic Narrative/Plan: * Clinically euvolemic not any acute exacerbation Current Visit: Yes Status: Acute Code(s): I50.22 - CHRONIC SYSTOLIC (CONGESTIVE) HEART FAILURE SNOMED Code(s): 582376368 Plan: CODE STATUS:Full Code Discussed with: Patient Anticipated discharge date: 08/19/[address]: Home A total of 40 minutes was spent on the care of this complex patient more than 50% of the time was spent in counseling and care coordination. Time with Patient: Greater than 30
[2018-08-17] MEDS: ATORVASTATIN 10 MG TAB PO SCH (21:56)
[2018-08-18] MEDS: ASPIRIN 81 MG PO SCH (09:16)
[2018-08-18] MEDS: OXYBUTYNIN CHLORIDE 5 MG TAB PO SCH ×2 (09:16→20:42)
[2018-08-18] MEDS: HEPARIN SODIUM,PORCINE 5,000 UNIT/ML 1 ML VIAL SQ SCH ×2 (09:16→20:42)
[2018-08-18 09:21] LABS: Basophils % (A) 0 %; Eosinophils % (A) 0 %; HCT 35.5 % (34.0-46.0); HGB 11.4 gm/dL (11.4-16.0); Lymphocytes # (A) 1.1 k/uL (1.0-4.8); Lymphocytes % (A) 11 %; MCH 29.2 pg (25.0-35.0); MCHC 32.2 g/dL (31.0-37.0); MCV 90.7 fL (80.0-100.0); Mean Platelet Volume 6.9; Monocytes # (A) 0.7 k/uL (0-1.0); Monocytes % (A) 7 %; Neutrophils # (A) 8.4 k/uL (1.3-7.7); Neutrophils % (A) 80 %; Platelet Count 169 k/uL (150-450); RBC 3.91 m/uL (3.80-5.40); RDW 13.7 % (11.5-15.5); WBC 10.5 k/uL (3.8-10.6)
[2018-08-18 09:28] LABS: Calcium 7.5 mg/dL (8.4-10.2); Potassium 3.3 mmol/L (3.5-5.1)
--- NOTE | 2018-08-18 09:43 | ECHOF ---
Referral Reason:elev trop MEASUREMENTS -------- HEIGHT: 165.1 cm WEIGHT: 59.0 kg BP: 119/74 RVIDd: 3.4 cm (< 3.3) IVSd: 1.7 cm (0.6 - 1.1) LVIDd: 2.5 cm (3.9 - 5.3) LVPWd: 1.4 cm (0.6 - 1.1) IVSs: 1.7 cm LVIDs: 2.0 cm LVPWs: 1.5 cm LAESV Index (A-L): 23.25 ml/m Ao Diam: 3.7 cm (2.0 - 3.7) AV Cusp: 1.5 cm (1.5 - 2.6) LA Diam: 2.2 cm (2.7 - 3.8) MV E Darren: 0.39 m/s MV DecT: 248 ms MV A Darren: 0.85 m/s MV E/A Ratio: 0.46 RAP: 5.00 mmHg RVSP: 23.86 mmHg FINDINGS -------- Sinus rhythm. This was a technically adequate study. The left ventricular size is normal. There is severe concentric left ventricular hypertrophy. Ove rall left ventricular systolic function is normal with, an EF between 55 - 60 %. The right ventricle is mildly enlarged. The left atrial size is normal. Normal LA size by volume 22+/-6 ml/m2. The right atrial size is normal. Interatrial and interventricular septum intact. Aortic valve is trileaflet and is mildly thickened. Cannot rule out vegetation. The mitral valve leaflets are mildly thickened. Mild mitral annular calcification present. Mild m itral regurgitation is present. Mild tricuspid regurgitation present. There is no evidence of pulmonary hypertension. The right v entricular systolic pressure, as measured by Doppler, is 23.86mmHg. The aortic root size is normal. Normal inferior vena cava with normal inspiratory collapse consistent with estimated right atrial pre ssure of 5 mmHg. There is no pericardial effusion. CONCLUSIONS -------- 1. Sinus rhythm. 2. This was a technically adequate study. 3. The left ventricular size is normal. 4. There is severe concentric left ventricular hypertrophy. 5. Overall left ventricular systolic function is normal with, an EF between 55 - 60 %. 6. The right ventricle is mildly enlarged. 7. The left atrial size is normal. 8. Normal LA size by volume 22+/-6 ml/m2. 9. The right atrial size is normal. 10. Interatrial and interventricular septum intact. 11. Aortic valve is trileaflet and is mildly thickened. 12. Cannot rule out vegetation. 13. The mitral valve leaflets are mildly thickened. 14. Mild mitral annular calcification present. 15. Mild mitral regurgitation is present. 16. Mild tricuspid regurgitation present. 17. There is no evidence of pulmonary hypertension. 18. The right ventricular systolic pressure, as measured by Doppler, is 23.86mmHg. 19. The aortic root size is normal. 20. Normal inferior vena cava with normal inspiratory collapse consistent with estimated right atrial pressure of 5 mmHg. 21. There is no pericardial effusion. FURNACE PACKER: Lyndsay Beltran RDCS
[2018-08-18] MEDS ORDERED: POTASSIUM CHLORIDE ER 20 MEQ TAB.ER PO STA (11:46)
--- NOTE | 2018-08-18 11:50 | P.PN ---
Subjective Progress Note Date: 08/18/18 Patient seen and examined at bedside, reports that she slept much better last night. He reports that her energy is coming back, would like to go home. Appetite is improved, afebrile overnight leukocytosis resolved. No acute events Objective - Vital Signs Vital signs: Vital Signs Temp 98.8 F 08/18/18 07:00 Pulse 86 08/18/18 08:00 Resp 12 08/18/18 08:00 BP 127/78 08/18/18 07:00 Pulse Ox 96 08/18/18 07:00 Intake & Output 08/17/18 08/18/18 08/18/18 18:59 06:59 18:59 Intake Total 420 750 Balance 420 750 Intake: Intake, IV Titration 750 Amount Sodium Chloride 0.9% 1, 750 000 ml @ 75 mls/hr IV . [id number] MAURO Rx#:[id number] Oral 420 Other: # Voids 3 1 # Bowel Movements 1 - Exam Constitutional: No acute distress, conversant, pleasant Eyes: Anicteric sclerae, moist conjunctiva, no lid-lag, PERRLA ENMT: NC/AT,Oropharynx clear, no erythema, exudates Neck:Supple, FROM, no masses, or JVD, No carotid bruits; No thyromegaly Lungs: Clear to auscultation, Clear to percussion, Normal respiratory effort, no accessory muscle use Cardiovascular: Heart regular in rate and rhythm, No murmurs, gallops, or rubs no peripheral edema Abdominal: Soft Nontender, nom distended, no guarding, no rebound or rigidity, Normoactive bowel sounds No hepatomegaly, No splenomegaly, No palpable mass No abdominal wall hernia noted Skin: Normal temperature, tone, texture, turgor, No induration No subcutaneous nodules, No rash, lesions, No ulcers Extremities:No digital cyanosis No clubbing, Pedal pulses intact and symmetrical Radial pulses intact and symmetrical Normal gait and station, No calf tenderness Psychiatric: Alert and oriented to person, place and time, Appropriate affect Intact judgement Neuro: Muscles Strength 5/5 in all 4 extremities, Sensation to light touch grossly present throughout, Cranial nerves II-XII grossly intact. No focal sensory deficits - Labs CBC & Chem 7: 08/18/18 08:51 08/18/18 08:51 Labs: Abnormal Lab Results - Last 24 Hours (Table) 08/18/18 08/18/18 Range/Units 08:51 08:51 Neutrophils # 8.4 H (1.3-7.7) k/uL Sodium 136 L (137-145) mmol/L Potassium 3.3 L (3.5-5.1) mmol/L Chloride 109 H (98-107) mmol/L Carbon Dioxide 21 L (22-30) mmol/L BUN 20 H (7-17) mg/dL Creatinine 1.05 H (0.52-1.04) mg/dL Glucose 111 H (74-99) mg/dL Calcium 7.5 L (8.4-10.2) mg/dL Microbiology - Last 24 Hours (Table) 08/16/18 19:43 Urine Culture - Preliminary Urine,Catheterized Gram Neg Bacilli Assessment and Plan (1) Sepsis Narrative/Plan: * Secondary to UTI and urine cultures showing preliminary E. coli and Proteus, blood cultures pending, chest x-ray showing minimal subsegmental atelectasis right lower lobe no heart failure pulmonary consolidation * Both cultures susceptible to Rocephin * plan continue with current antibiotic regimen on Rocephin Current Visit: Yes Status: Acute Code(s): A41.9 - SEPSIS, UNSPECIFIED ORGANISM SNOMED Code(s): 06858578 (2) Acute kidney injury Narrative/Plan: * Acute kidney injury versus chronic in disease versus possibly superimposed on chronic kidney disease * Creatinine trending down * Likely prerenal secondary to dehydration/sepsis Current Visit: Yes Status: Resolved Code(s): N17.9 - ACUTE KIDNEY FAILURE, UNSPECIFIED SNOMED Code(s): 18517111 (3) UTI (urinary tract infection) Narrative/Plan: * Preliminary yielding gram-negative bacilli final cultures and sensitivities still pending * Continue current antibiotic regimen Current Visit: Yes Status: Acute Code(s): N39.0 - URINARY TRACT INFECTION, SITE NOT SPECIFIED SNOMED Code(s): 50338027 (4) Elevated troponin Narrative/Plan: * Troponin elevation and trending up to 0.18 * Likely demand ischemia in the setting of likely underlying kidney disease * History of systolic CHF echocardiogram today showing a preserved LVEF of 55- 60% * Appreciate cardiology recommendations Current Visit: Yes Status: Acute Code(s): R74.8 - ABNORMAL LEVELS OF OTHER SERUM ENZYMES SNOMED Code(s): 071470487 (5) Systolic CHF, chronic Narrative/Plan: * Clinically euvolemic not any acute exacerbation Current Visit: Yes Status: Acute Code(s): I50.22 - CHRONIC SYSTOLIC (CONGESTIVE) HEART FAILURE SNOMED Code(s): 657442952 Plan: CODE STATUS:Full Code Discussed with: Patient Anticipated discharge date: 08/19/18 after final cultures are back Anticipated discharge place: Home A total of 40 minutes was spent on the care of this complex patient more than 50% of the time was spent in counseling and care coordination.
[2018-08-18] MEDS: SODIUM CHLORIDE 0.9% 1,000 ML IV SCH (19:42)
[2018-08-18] MEDS: ATORVASTATIN 10 MG TAB PO SCH (20:42)
[2018-08-19] MEDS: SODIUM CHLORIDE 0.9% 1,000 ML IV SCH (00:31)
[2018-08-19 07:17] LABS: Calcium 7.6 mg/dL (8.4-10.2)
[2018-08-19] MEDS: OXYBUTYNIN CHLORIDE 5 MG TAB PO SCH (08:17)
[2018-08-19] MEDS: HEPARIN SODIUM,PORCINE 5,000 UNIT/ML 1 ML VIAL SQ SCH (08:17)
[2018-08-19] MEDS: ASPIRIN 81 MG PO SCH (08:17)
[2018-08-19 08:29] VITALS: BP 147/89; PULSE 94; RESP 16; TEMP 98.3
--- NOTE | 2018-08-19 09:13 | P.DS ---
Providers Date of admission: 08/16/18 21:03 Expected date of discharge: 08/19/18 Attending physician: Deyanira Burrell MD Consults: 08/17/18 09:30 Consult Physician Routine Consulting Provider: Bang Sethi Consult Reason/Comments: elevated troponin Do you want consulting provider notified?: Yes Primary care physician: Yanick Oconnell - Discharge Diagnosis(es) (1) Sepsis Current Visit: Yes Status: Acute (2) Klebsiella cystitis Current Visit: Yes Status: Acute (3) Acute kidney injury Current Visit: Yes Status: Resolved (4) Elevated troponin Current Visit: Yes Status: Acute (5) Systolic CHF, chronic Current Visit: Yes Status: Acute Hospital Course: The patient is a 77-year-old that was admitted for sepsis secondary to UTI after presenting to the ER with reports of lethargy and weakness. She was noted to have a white count of 14 and abnormal urinalysis that was sent for culture she was placed on empiric IV antibiotics with Rocephin. The patient was noted to be hemodynamically stable and afebrile and had a negative lactate level on admission. the patient was also noted to Be in acute kidney injury with elevated serum troponin that got up as high as 0.18 this was attributed to demand ischemia from sepsis in the setting of an acute kidney injury. Urine cultures grew Klebsiella pneumoniae with hamilton sensitivities of the patient's antibiotic regimen was changed to oral Keflex on time of discharge she was subsequently sent back to the extended care facility. This discharge process took approximately 35 minutes . 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 Gallbladder ultrasound * Gallbladder showed gallstones no dilated ducts is moderate right-sided hydronephrosis Echocardiogram * Preserved LVEF of 55-60% Patient Condition at Discharge: Good Plan - Discharge Summary New Discharge Prescriptions: New Cephalexin [Keflex] 500 mg PO Q12HR #5 cap Continue Metoprolol Tartrate [Lopressor] 50 mg PO BID Aspirin EC [Ecotrin Low Dose] 81 mg PO DAILY Oxybutynin Chloride 5 mg PO BID Atorvastatin Calcium [Lipitor] 10 mg PO HS Discontinued Losartan-Hctz 50-12.5 mg [Hyzaar 50-12.5] 1 tab PO BID Discharge Medication List Metoprolol Tartrate [Lopressor] 50 mg PO BID 09/30/16 [History] Aspirin EC [Ecotrin Low Dose] 81 mg PO DAILY 09/29/17 [History] Oxybutynin Chloride 5 mg PO BID 09/29/17 [History] Atorvastatin Calcium [Lipitor] 10 mg PO HS 08/16/18 [History] Cephalexin [Keflex] 500 mg PO Q12HR #5 cap 08/19/18 [Rx] Follow up Appointment(s)/Referral(s): Yanick Oconnell MD [Primary Care Provider] - 1-2 days [facility], [NON-STAFF] - Gonzalo Webb MD [STAFF PHYSICIAN] - 2 Weeks Discharge Disposition: HOME WITH HOME HEALTH SERVICES
== END 2018-08-19 14:22 | disposition home health service (06) | DRG 872 ==
LOC: EC 16:04 → 4SSUR 21:03
PROVIDERS: ADMIT Internal Medicine; ATTEND Internal Medicine
DX: A41.9 Sepsis, unspecified organism (principal); N17.9 Acute kidney failure, unspecified; I50.22 Chronic systolic (congestive) heart failure; I24.8 Other forms of acute ischemic heart disease; I13.0 Hypertensive heart and chronic kidney disease with heart failure and stage 1 through stage 4 chronic kidney disease, or unspecified chronic kidney disease; M06.9 Rheumatoid arthritis, unspecified; Z96.653 Presence of artificial knee joint, bilateral; N18.9 Chronic kidney disease, unspecified; F32.9 Major depressive disorder, single episode, unspecified; R77.8 Other specified abnormalities of plasma proteins; E86.0 Dehydration; J44.9 Chronic obstructive pulmonary disease, unspecified; N30.90 Cystitis, unspecified without hematuria; B96.1 Klebsiella pneumoniae [K. pneumoniae] as the cause of diseases classified elsewhere; Z88.2 Allergy status to sulfonamides; Z79.82 Long term (current) use of aspirin; Z79.899 Other long term (current) drug therapy; Z86.14 Personal history of Methicillin resistant Staphylococcus aureus infection; Z95.0 Presence of cardiac pacemaker; Z82.49 Family history of ischemic heart disease and other diseases of the circulatory system; Z80.9 Family history of malignant neoplasm, unspecified; Z86.73 Personal history of transient ischemic attack (TIA), and cerebral infarction without residual deficits
CPT/HCPCS: 36415; 70450; 71046; 76705; 80048; 80053; 81001; 83605; 83735; 84484; 85025; 85027; 85610; 85730; 87077; 87086; 87186; 93005; 93306; 96361; 96374; 99285